=== PATIENT | male | born 1945 | race Caucasian/White ===

== ENCOUNTER 2017-05-11 22:10 | Inpatient (IN) | payer MEDICARE ==
[~2017-05-11] VITALS: Ht 183.1 cm; Wt 145.2 kg
--- NOTE | ~2017-05-11 | EC ---
PATIENT:KACEY CHAWLA DATE OF SERVICE: 05/11/17 SEX: M MEDICAL RECORD: [id number] DATE OF : 43 LOCATION:D. D.212 AGE OF PATIENT: 72 ADMISSION DATE: 05/11/17 REFERRING PHYSICIAN: INTERPRETING PHYSICIAN: MARINE JADE MD ECHOCARDIOGRAM REPORT ECHO CHARGES 4 ECHO COMPLETE CLINICAL DIAGNOSIS: CHF ECHOCARDIOGRAPHIC MEASUREMENTS (adult normal given) AC root (d.<3.7cm) 3.0 cm LV Septum d (<1.2 cm> 1.8 cm Valve Excursion 1.3 cm LV Septum (systole) 2.0 cm Left Atria (s.<4.0cm> 4.0 cm LVPW d(<1.2cm) 1.4 cm RV (d.<2.3cm) 4.9 cm LVPW (sytole) 2.1 cm LV diastole(<5.6CM) 5.7 cm MV E-F(>70mm/sec) cm LV systole 4.8 cm LVOT Diameter 1.7 cm MV exc.(>10mm) 1.9 cm Est.ejection fraction (50-75%) % Pericardial Effusion N DOPPLER: LVIT cm/sec A 89.0 cm/sec E 39.0 cm/sec LA cm/sec RVSP 44 mmHg LVOT 120 cm/sec AOP1/2T m/s Asc. Ao 172 cm/sec RVOT 89 cm/sec RA cm/sec PA 142 cm/sec AV Gradient Peak 11.89mmHg AV Mean 6.63 mmHg AV Area 1.2 cm MV Gradient Peak 4.67 mmHg MV Mean 2.18 mmHg MV Area cm COMMENTS: Forest Resource Specialist: 2 ELYSIA SUAREZ Well Surveying Engineer: 4 Dr. Jade TAPE# PACS DATE OF SERVICE: 05/15/2017 PROCEDURE: Transthoracic Echocardiogram FINDINGS: 1. The left ventricle is difficult to visualize. Accurate assessment of ejection fraction is difficult to ascertain, posterior wall is not very well visualized, lateral wall is not very well visualized. The septum and partial anterior wall is reasonably visualized and shown to be thickening appropriately. The patient is also on atrial fibrillation making marked variations in the R-R ECHOCARDIOGRAM REPORT [id number] KACEY CHAWLA interval. Grossly, the ejection fraction appears to be mildly reduced with an ejection fraction of 45% to 50%. 2. The right ventricle appears to be moderately to severely dilated with normal function. 3. The right atrium is moderately dilated. 4. The aortic valve appears to have thickening along the right noncoronary cusp and evidence of mild aortic stenosis with peak gradient that was demonstrated only 15 mmHg. The patient has moderate tricuspid valve regurgitation. There is no demonstrated pericardial effusion. In conclusion, the patient has atrial fibrillation, some evidence of cardiomyopathy that is difficult to ascertain and I would recommend that the patient, if clinically relevant, undergo a complimentary functional assessment in the form of a MUGA if we can get his rate under good control. Otherwise, there is evidence of hypertensive heart disease, mild aortic stenosis. No other gross valvular abnormalities were demonstrated on this study. TRANSINT:[id number] Voice Confirmation ID: [id number] DOCUMENT ID: [id number] MARINE JADE MD CC: [id number] DICTATION DATE: 05/15/17810 WATER POLLUTION SPECIALIST: 05/15/17830 DIS IN 05/19/17 [facility] [address] [place] [address]
[~2017-05-11 22:10] MED LIST: AMBIEN10 MG; ASPIRIN 81 MG E81 MG PO; AVODART0.5 MG PO; BYSTOLIC20 MG PO; CENTRUM COMPLE1 EACH PO; DURAGESIC1 PATCH .1; FISH OIL 1,2001 CA1 PO; GLUCOPHAGE500 MG PO; GLUCOVANCE 2.5/1 TAB PO; KLOR-CON M2020 MEQ PO; LASIX40 MG PO; NORCO 10/325 TA1 TA1 PO; PERCOCET 10/3251 TA1 PO; PLAVIX75 MG PO; PRILOSEC20 MG PO; PRINZIDE 10/12.1 TAB PO; REQUIP1 MG PO; RESTORIL15 MG PO; TENORMIN100 MG PO; VITAMIN E400 UNI2 PO; VYTORIN 10-40 M1 TAB PO; ZYLOPRIM100 MG PO
[2017-05-11 22:43] LABS: BASOPHILS 0 % (0-2); EOSINOPHILS 0.1 % (0-7); HEMATOCRIT 39.7 % (42.0-54.0); HEMOGLOBIN 11.6 g/dL (13.5-17.5); IMMATURE GRANULOCYTES 0.3 % (0-5); LYMPHOCYTES 9.1 % (15-50); MCH 29.7 pg (26.0-34.0); MCHC 29.2 g/dL (31.0-37.0); MCV 101.5 fL (80.0-100.0); MEAN PLATELET VOLUME 11.6 fL (7.4-10.4); MONOCYTES 4.7 % (2-11); NEUTROPHILS 85.8 % (40-80); PLATELET COUNT 174 10x3/uL (130-400); RBC 3.91 10x6/uL (4.20-6.10); RDW 14.2 % (11.5-14.5); WBC 9.5 10x3/uL (4.8-10.8)
[2017-05-11 23:02] LABS: ALBUMIN 3.3 g/dL (3.4-5.0); ANION GAP 13.2 mmol/L (8-16); BILIRUBIN - TOTAL 0.6 mg/dL (0.2-1.3); CALCIUM 8.3 mg/dL (8.5-10.1); CREATININE - SERUM 1.9 mg/dL (0.6-1.3); POTASSIUM - SERUM 5.2 mmol/L (3.5-5.1); PROTEIN - SERUM 6.9 g/dL (6.4-8.2)
[2017-05-11 23:06] LABS: TROPONIN-I 0.034 ng/mL (0.000-0.060)
[2017-05-12] VITALS: BP 104/59
[2017-05-12 00:20] LABS: APPEARANCE HAZY (CLEAR); BILIRUBIN NEGATIVE (NEGATIVE); COLOR DK YELLOW (YELLOW); GLUCOSE NEGATIVE (NEGATIVE); KETONE NEGATIVE (NEGATIVE); LEUKOCYTE ESTERASE TRACE (NEGATIVE); NITRITE NEGATIVE (NEGATIVE); PROTEIN TRACE mg/dL (NEGATIVE); UROBILINOGEN NORMAL (NORMAL)
[2017-05-12 00:23] LABS: BACTERIA FEW /hpf (NONE SEEN); EPITHELIAL CELLS 0-5 /hpf (0-5); WHITE CELLS - URINE 0-5 /hpf (0-5)
[2017-05-12 00:24] LABS: AMORPHOUS SEDIMENT >1+ /lpf (NONE SEEN)
--- NOTE | 2017-05-12 01:50 | NUR ---
RECEIVED FROM ER, 02-2L. IV-RFA-NS @50, ARMSTRONG, PT IS ON BED REST, LASIX WAS GIVEN IN ER, BED IS LOW, SRX2, CALL LIGHT IN REACH, VITALS ARE STABLE, TELEMTRY IS ON, WILL CONTINUE PLAN OF CARE
[2017-05-12] MEDS ORDERED: COZAAR100 MG PO (02:05)
[2017-05-12] MEDS ORDERED: ZETIA10 MG PO (02:07)
[2017-05-12] MEDS ORDERED: HYDROCHLOROTH12.5 M1 PO (02:07)
[2017-05-12] MEDS ORDERED: HYDROCHLOROTHIA25 MG PO (02:08)
[2017-05-12] MEDS ORDERED: ULTRAM50 MG PO (02:09)
--- NOTE | 2017-05-12 02:55 | NUR ---
CALL LIGHT IN REACH, WILL CONTINUE WITH PLAN OF CARE.
[2017-05-12 04:03] VITALS: BP 121/58
--- NOTE | 2017-05-12 04:44 | NUR ---
PT SLEEPING, FAMILY BROUGHT COPY OF LIVING WILL, PLACED ON CHART, FAMILY AT BEDSIDE
[2017-05-12 05:44] VITALS: Ht 183.1 cm; Wt 145.2 kg
--- NOTE | 2017-05-12 07:28 | NUR ---
AM ROUNDS- PT CONFUSED, PULLING AT HEART MONITOR. PT A LITTLE SOB ON 2 L NC. BED LOW AND WHEELS LOCKED, BEDSIDE RAILS X2, BED ALARM ON. NO FAMILY PRESENT. AEROBICS TEACHER AT BEDSIDE TO GET VITAL SIGNS. CALL LIGHT IN REACH, NAD NOTED, WILL CONTINUE TO MONITOR.
[2017-05-12 08:00] VITALS: BP 117/64
--- NOTE | 2017-05-12 09:00 | NUR ---
CALLED TO PT'S ROOM. BECAUSE HAVING PAIN WANTS TO KNOW IF HE CAN HAVE SOMETHING, INFORMED PT AND PT'S THAT HE DOES NOT HAVE ANYTHING ORDER, WILL CALL DR. LOPEZ TO GET SOMETHING. IV GOING OFF, CHECKED IT. PT HAS PULLED IV OUT WITH TIP INTACT. WILL RESTART NEW IV. PT IN BED, TRYING TO PULL HEART MONITOR OFF. NAD NOTED, AT BEDSIDE WILL CONTINUE TO MONITOR.
--- NOTE | 2017-05-12 09:06 | NUR ---
CALLED DR. LOPEZ AND ASKED HIS NURSE MILLIE IF PT CAN HAVE SOMETHING FOR PAIN. WAITING [employer] G[employer] SPOTTER BACK WITH ORDERS.
[2017-05-12 12:00] VITALS: BP 105/63
--- NOTE | 2017-05-12 12:23 | NUR ---
PT'S DAUGHTER IN LAW INFORMED PACKING CLERK THAT PT WANTS TO LEAVE NOW. THAT HE WANTS HIS ARMSTRONG OUT SO THEY CAN LEAVE. DAUGHTER IN LAW CAME UP TO NURSE'S STATION AND INFOMED THIS NURSE THAT PT IS GOING TO LEAVE AND THE ARMSTRONG NEEDS TO BE TAKEN OUT OR PT IS GOING TO PULL IT OUT. INFORMED THE DAUGHTER IN LAW THAT I HAVE TO CALL DR. LOPEZ KNOW THAT PT WANTS TO LEAVE AMA. 1230- CALLED DR. LOPEZ'S OFFICE BUT NO ONE ANSWERED THE PHONE. NOTIFY FAMILY AT BEDSIDE. DAUGHTER IN LAW STATED " MY IS TALKING TO HIM TRYING TO GET HIM TO STAY. MAYBE HE WILL LISTEN TO HIM". PT'S DAUGHTER IN LAW STATED THAT SHE WOULD NOTIFY ME IF PT STILL WANTS TO LEAVE AMA.
--- NOTE | 2017-05-12 14:03 | NUR ---
FAMILY WANT ALL MEDS RESTARTED ESPECIALLY HIS REQUIP. CALLED DR. LOPEZ'S OFFICE AND SPOKE WITH MILLIE LOPEZ'S NURSE, INFOMRED HER THAT PT WANTED TO LEAVE JANA GOLD BUT DECIDED TO STAY, BUT NOW HE WANTS ALL OF HIS MEDICATIONS RESTARTED.
[2017-05-12 17:05] VITALS: BP 99/48
--- NOTE | 2017-05-12 17:14 | NUR ---
PT REPOSITIONED IN BED, WITH THE HELP OF THE ANALYTICAL ENGINEER. NATHANIEL EMPITED AT THIS TIME, TOTAL OUTPUT WAS 1200. HEART MONITOR PLACED BACK ON PT. PT DENIES ANY NEEDS AT THIS TIME. RESP EVEN AND UNLABORED, NAD NOTED, BED LOW, CALL LIGHT IN REACH, WILL CONTINUE TO MONITOR.
--- NOTE | 2017-05-12 18:24 | NUR ---
EXPLAINED SCD RATIONAL TO PT. PT RUFUSED TO WEAR SCD'S AT THIS TIME. PT IN BED, ASKING ABOUT HIS . INFOMRED PT THAT SHE WENT HOME FOR A LITTLE WHILE. PT PULLING AT HEART MONITOR AND ARMSTRONG. ASKED PT TO STOP PULLING AT ARMSTRONG BECAUSE IF HE PULLS IT OUT IT IS GOING TO HURT HIM A LOT. PT STATED "OK". DENIES ANY OTHER NEEDS AT THIS TIME, NAD NOTED,CALL LIGHT IN REACH, BED ALARM ON, WILL CONTINUE TO MONITOR.
[2017-05-12 19:00] VITALS: BP 144/71
--- NOTE | 2017-05-12 19:39 | NUR ---
PT RESTING IN BED. FAMILY AT BED SIDE. PT ASKED FOR REQUIP PILL FOR HIS RESTLESS LEGS AND A NORCO FOR HIS BACK. PT ALSO ASKS FOR JELLO AND SHERBERT ICE CREAM. PT HAS FOLLEY HOOKED UP AND LEFT WRIST IV S/L. FAMILY ASKES ABOUT CT DONE TODAY. PT HAS NO OTHER NEEDS NO S/S OF DISTRESS. PT ON 3L O2 VIA NC. BED LOW AND CALL LIGHT WITHIN REACH. WILL CPOC
--- NOTE | 2017-05-12 21:08 | NUR ---
PT C/O NEEDING MORE O2. RESPRITORY CAME TO CHECK PT 02 SAT VERY LOW PT NOW ON 5L. CRYSTAL FROM ICU SAID TO GIVE LASIX EARLY. GIVEN TO PT. PT O2 SAT NOW 88 ON THE 5L REPORTING TO CHARGE NURSE AND RESPRITORY NOW. PT NOT IN DISTRESS. COUGHING THE SPUTUM UP AND IS AAO
--- NOTE | 2017-05-12 21:11 | NUR ---
PT O2 SAT IS NOW 92% ON 5L. FAMILY IN ROOM PT STILL TRYING TO COUGH. WILL CPOC. STILL REPORTING TO CHARGE NURSE AND RESPRITORY
--- NOTE | 2017-05-12 22:01 | NUR ---
PT NOW ON 15L OXYMIZER. RESPRITORY IN ROOM. GUERDA FROM ICU IN ROOM. RESPRITORY DRAWING AN ABG AND GUERDA STATES SHE WILL CALL DOCTOR TO TALK ABOUT LASIX AND SEE WHAT ORDERES WANTS TO PUT IN. PT O2 IS 90%. LABORED BREATHING 32. WILL CPOC
--- NOTE | 2017-05-12 22:20 | NUR ---
UPDATE CALLED TO DR. MICHELE, NEW ORDERS RECIEVED,
--- NOTE | 2017-05-12 22:47 | NUR ---
EMPTIED 1025 FROM [facility] BEFORE GIVING LASIX. PT WANTED TO STRAIGHTEN UP IN BED. O2 DROPPED TO 85 NOW IS 89. PT AWAKE. AAO. ASKED ME TO CALL AND UPDATE ON SITUATION. WAS NOTIFIED. PT DENIES ANY OTHER NEEDS. WILL CPOC
--- NOTE | 2017-05-12 23:00 | NUR ---
PATIENT REFUSED BIPAP EVEN AFTER CO2 WAS 103 ON ABG. HE SAID HE COULD NOT TOLERATE BIPAP
[2017-05-13] VITALS: BP 119/69
--- NOTE | 2017-05-13 00:28 | NUR ---
PT RESTLESS. PULLING O2 OFF AND MESSING WITH PHONE WANTING TO CALL HIS . HELPED PT DIAL HER NUMBER THIS IS THE 3RD TIME HE HAS CALLED HER. PT O2 IS NOW ON AND O2 IS 90% AT 3L OXYMIZER. PT O2 WAS 64 WHEN WALKED IN ROOM BECAUSE PT TOOK OF OXYGEN. PT REPOSITONED. PILLOW APPLIED TO HELP PT STAY STRAIGHT IN BED. PT KEEPS LEANING TO RIGHT. PT DENIES ANY NEEDS. NO S/S OF DISTRESS. WILL CPOC
--- NOTE | 2017-05-13 02:35 | NUR ---
PT IS ASLEEP. RESPIRATIONS LABORED. AND PT IS GURGLING WHEN BREATHING. PT IS PUSHING HIMSELF OVER TO THE RIGHT AND LAYING IN AN AWKWARD POSITON. I HAVE REPOSITONED SEVERAL TIMES TONIGHT R/T PT LEANING TO THE RIGHT. PT O2 IS 90% ON 3L OXYMIZER. NO S/S OF DISTRESS. WILL CPOC
[2017-05-13 03:36] LABS: BASOPHILS 0.2 % (0-2); EOSINOPHILS 0.6 % (0-7); HEMOGLOBIN 11.3 g/dL (13.5-17.5); IMMATURE GRANULOCYTES 0.3 % (0-5); LYMPHOCYTES 7.8 % (15-50); MCH 29.4 pg (26.0-34.0); MCHC 29.7 g/dL (31.0-37.0); MEAN PLATELET VOLUME 11.5 fL (7.4-10.4); MONOCYTES 10.9 % (2-11); NEUTROPHILS 80.2 % (40-80); PLATELET COUNT 157 10x3/uL (130-400); RBC 3.85 10x6/uL (4.20-6.10); WBC 9.9 10x3/uL (4.8-10.8)
[2017-05-13 03:37] LABS: MCV 98.7 fL (80.0-100.0)
[2017-05-13 03:53] LABS: ANION GAP 7.4 mmol/L (8-16); BILIRUBIN - TOTAL 0.64 mg/dL (0.2-1.3); CALCIUM 7.9 mg/dL (8.5-10.1); CARBON DIOXIDE 39.1 mmol/L (21.0-32.0); CREATININE - SERUM 1.8 mg/dL (0.6-1.3); POTASSIUM - SERUM 4.5 mmol/L (3.5-5.1); PROTEIN - SERUM 6.6 g/dL (6.4-8.2)
[2017-05-13 04:21] LABS: APPEARANCE TURBID (CLEAR); COLOR PINK (YELLOW)
[2017-05-13 04:22] LABS: BACTERIA NONE SEEN /hpf (NONE SEEN); BILIRUBIN NEGATIVE (NEGATIVE); EPITHELIAL CELLS NSEEN /hpf (0-5); GLUCOSE NEGATIVE (NEGATIVE); KETONE NEGATIVE (NEGATIVE); LEUKOCYTE ESTERASE NEGATIVE (NEGATIVE); NITRITE NEGATIVE (NEGATIVE); PROTEIN 1+ mg/dL (NEGATIVE); RED CELLS - URINE >50 /hpf (0-5); UROBILINOGEN NORMAL (NORMAL); WHITE CELLS - URINE 0-5 /hpf (0-5)
[2017-05-13 04:37] VITALS: BP 132/78
--- NOTE | 2017-05-13 06:14 | NUR ---
PT SITTING ON SIDE OF BED FOR 20 MINS NOW. X1 ASSIST TO SIT ON SIDE OF BED. ALARM ON AND CALL LIGHT WITHIN REACH. PT VERBALIZED UNDERSTANDING WHEN TOLD TO CALL FOR HELP BACK IN BED AND VERBALIZED THAT HE WILL NOT TRY AND GET UP WITH OUT ASSISTANCE. PT ON 3L OXYMIZER 92%. SITTING UP DRINKING A COKE. PT DENIES ANY NEEDS.NO S/S OF DISTRESS. WILL CPOC
--- NOTE | 2017-05-13 06:32 | NUR ---
PT REPOSITIONED AND BACK IN BED. HOB UP 30 PT O2 ON 3L OXYMIZER. PT DENIES ANY NEEDS. NO S/S OF DISTRESS. WILL CPOC
[2017-05-13 08:42] VITALS: BP 113/47
--- NOTE | 2017-05-13 10:16 | NUR ---
WENT IN PT'S ROOM AND HE HAD ALL OF HIS CLOTHES PULLED OFF, HEART MONITOR OFF, AND HAD TRIED TO PULL OUT HIS ARMSTRONG CATH - HE WAS ORIENTED TO PERSON, PLACE, AND TIME AND STATED "I JUST WANTED TO GO HOME" - ARMSTRONG WAS SECURED BACK IN STAT LOCK AND I EXPLAINED TO HIM NOT TO PULL ON HIS LINES - VERBALIZED UNDERSTANDING AND STATED "I WON'T DO IT AGAIN"
[2017-05-13 12:40] VITALS: BP 130/61
--- NOTE | 2017-05-13 19:26 | NUR ---
PT RESTING IN BED. HOB 45. PT ON 3L O2 OXYMIZER. IV RIGHT HAND S/L. PT HAS PHONE AND CALLLIGHT WITHIN REACH. DENIES ANY NEEDS NO S/S OF DISTRESS. WILL CPOC
[2017-05-13 20:00] VITALS: BP 139/78
--- NOTE | 2017-05-13 23:07 | NUR ---
PT RESTING IN BED. DENIES ANY NEEDS. NO S/S OF DISTRESS. WILL CPOC
[2017-05-14 03:55] VITALS: BP 131/82
[2017-05-14 04:00] VITALS: BP 138/72
[2017-05-14 04:27] LABS: BASOPHILS 0.3 % (0-2); HEMATOCRIT 36.9 % (42.0-54.0); HEMOGLOBIN 11.2 g/dL (13.5-17.5); IMMATURE GRANULOCYTES 0.2 % (0-5); LYMPHOCYTES 12.5 % (15-50); MCH 29.5 pg (26.0-34.0); MCHC 30.4 g/dL (31.0-37.0); MCV 97.1 fL (80.0-100.0); MEAN PLATELET VOLUME 11.8 fL (7.4-10.4); MONOCYTES 12.2 % (2-11); NEUTROPHILS 73.8 % (40-80); PLATELET COUNT 168 10x3/uL (130-400); RDW 14.1 % (11.5-14.5); WBC 8.6 10x3/uL (4.8-10.8)
[2017-05-14 04:45] LABS: ALBUMIN 2.9 g/dL (3.4-5.0); BILIRUBIN - TOTAL 1.06 mg/dL (0.2-1.3); CREATININE - SERUM 1.7 mg/dL (0.6-1.3); POTASSIUM - SERUM 4.1 mmol/L (3.5-5.1); PROTEIN - SERUM 6.7 g/dL (6.4-8.2)
[2017-05-14 04:46] LABS: CARBON DIOXIDE 41.1 mmol/L (21.0-32.0)
--- NOTE | 2017-05-14 07:30 | NUR ---
PT SITTING UP IN BED SLEEPING ARROUSES EASILY RR EVEN AND UNLABORED NO S/S DISTRESS NOTED. TALKING ON THE PHONE WITH FAMILY MEMBER. ASSESSMENT COMPLETED AT THIS TIME. WILL CONT TO MONITOR.
[2017-05-14 07:53] VITALS: BP 133/81
[2017-05-14 09:35] LABS: CREATININE - URINE 14.9 mg/dL (30-125)
[2017-05-14 09:37] LABS: PRO/CRE RATIO URINE 0.3 mg/g
[2017-05-14 12:33] VITALS: BP 145/64
--- NOTE | 2017-05-14 13:16 | NUR ---
RD f/u note: Chart reviewed Pt sleeping while RD in room talked to family who report fair appetite says he has chewing problems secondary to no teeth, willing to try mechanical soft/ground meats. Family reported pt likes chocolate ensure. Diet: renal ADA PO: average 58%X 3 meals. MEDS: Lasix Labs: BUN 44 Trending up, Creat 1.8, NA 140, K 4.1 (trending down) BM note to be q 3 days Skin: reddened area to abd. noted to be edematous therefore MD started lasix. WT: up slightly to 341.9 frp, 339 Plan: RD to order ensure BID Add Chopped meats to diet RD to continue to follow/monitor
[2017-05-14 16:49] VITALS: BP 160/93
--- NOTE | 2017-05-14 18:34 | NUR ---
PT LAYING TO LEFT SIDE SLEEPING NO S/S DISTRESS NOTED RR EVEN AND UNLABORED.
--- NOTE | 2017-05-14 19:50 | NUR ---
NURSE AT BED SIDE TO OBTAIN VITALS, VITAL SIGNS STABLE.
[2017-05-14 20:12] VITALS: BP 133/81
--- NOTE | 2017-05-14 21:45 | NUR ---
HS MEDS GIVEN, IV TO LEFT FOREARM SWOLEN AND RED. IV CATH REMOVED WITH TIP INTACT, COVERED WITH 2X2 AND TAPE. REPOSITIONED IN BED FOR COMFORT. BED LOW, CL IN REACH, SR UP X2, BED ALARM IN USE.
--- NOTE | 2017-05-14 22:49 | NUR ---
IV RESITED TO THE TOP OF THE RIGHT FOREARM, 20 GAUGE, FIRST ATTEMPT. PT TOLERATED WELL.
--- NOTE | 2017-05-14 23:39 | NUR ---
PT INCONTINENT OF BOWEL, BATH AND LINEN CHANGE COMPLETE. HAIR WASHED WITH SHAMPOO CAP, ORAL CARE PROVIDED. REPOSITIONED IN BED FOR COMFORT. CL IN REACH.
--- NOTE | 2017-05-15 01:23 | NUR ---
RESTING WITH EYES CLOSED, RESPERATIONS EVEN, NO S/S DISTRESS NOTED.
[2017-05-15 04:00] VITALS: BP 134/73
--- NOTE | 2017-05-15 07:25 | NUR ---
PT SITTING UP IN BED LETHARGIC BUT ARROUSES EASILY AND CAN VOICE A CONVERSATION WITH ME. NEW IV NOTED TO R FA 20 G SL. PT DENIES ANY NEEDS WILL CONT TO MONITOR
[2017-05-15 08:10] LABS: BASOPHILS 0.2 % (0-2); EOSINOPHILS 1.5 % (0-7); HEMATOCRIT 39.8 % (42.0-54.0); HEMOGLOBIN 11.7 g/dL (13.5-17.5); IMMATURE GRANULOCYTES 0.1 % (0-5); LYMPHOCYTES 15.4 % (15-50); MCH 29.3 pg (26.0-34.0); MCHC 29.4 g/dL (31.0-37.0); MEAN PLATELET VOLUME 11.2 fL (7.4-10.4); MONOCYTES 6.5 % (2-11); NEUTROPHILS 76.3 % (40-80); PLATELET COUNT 157 10x3/uL (130-400); RDW 13.8 % (11.5-14.5); WBC 8.1 10x3/uL (4.8-10.8)
[2017-05-15 08:11] LABS: MCV 99.5 fL (80.0-100.0)
[2017-05-15 08:45] LABS: ALBUMIN 2.9 g/dL (3.4-5.0); BILIRUBIN - TOTAL 1.03 mg/dL (0.2-1.3); CALCIUM 8.4 mg/dL (8.5-10.1); CREATININE - SERUM 1.3 mg/dL (0.6-1.3); POTASSIUM - SERUM 3.5 mmol/L (3.5-5.1); PROTEIN - SERUM 6.2 g/dL (6.4-8.2)
[2017-05-15 08:46] LABS: ANION GAP 9.5 mmol/L (8-16)
--- NOTE | 2017-05-15 08:50 | NUR ---
DR. RUVALCABA ROUNDING. AM MEDS GIVEN ORDERED. NEW ORDERS RECEIVED WITH LOPRESSOR ALREADY GIVEN. SPOKE WITH DR. RUVALCABA AND HE ADVISED OK TO GIVE TOPROL ORDERED AND DC LOPRESSOR AFTER THIS AM. MESERET MYERS RN ADVICED.
[2017-05-15 08:57] VITALS: BP 121/82
[2017-05-15 11:17] LABS: SPE - A/G RATIO 1.2 (0.7-1.7); SPE - ALBUMIN 3.4 g/dL (2.9-4.4); SPE - ALPHA-1 GLOBULIN 0.2 g/dL (0.0-0.4); SPE - ALPHA-2 GLOBULIN 0.7 g/dL (0.4-1.0); SPE - BETA GLOBULIN 1.1 g/dL (0.7-1.3); SPE - GAMMA GLOBULIN 0.9 g/dL (0.4-1.8); SPE - M-SPIKE Not Observed g/dL (Not Observed); SPE - TOTAL PROTEIN 6.3 g/dL (6.0-8.5)
[2017-05-15 12:12] VITALS: BP 100/50
[2017-05-15 19:00] VITALS: BP 127/88
[2017-05-16] VITALS (9 sets, daily range): BP systolic 93–138; BP diastolic 46–82
--- NOTE | 2017-05-16 02:58 | NUR ---
RESTING WITH EYES CLOSED, RESPERATIONS EVEN, NO S/S DISTRESS NOTED.
--- NOTE | 2017-05-16 03:38 | NUR ---
NORCO 1 TAB GIVEN AT PT REQUEST FOR C/O PAIN, RATES PAIN AT AN 8 ON PAIN SCALE. REPOSITIONED IN BED FOR COMFORT, TURNED TO LEFT SIDE AND PLACED PILLOW BEHIND RIGHT SIDE OF BACK. KETOCONAZOLE CREAM APPLIED TO ABD FOLDS ON THE REDDEND AREAS. BED LOW, CL IN REACH, SR UP X2, BED ALARM IN USE.
[2017-05-16 04:50] LABS: BASOPHILS 0.3 % (0-2); EOSINOPHILS 2.8 % (0-7); HEMATOCRIT 39.7 % (42.0-54.0); HEMOGLOBIN 11.4 g/dL (13.5-17.5); IMMATURE GRANULOCYTES 0.1 % (0-5); MCH 28.9 pg (26.0-34.0); MCHC 28.7 g/dL (31.0-37.0); MCV 100.8 fL (80.0-100.0); MEAN PLATELET VOLUME 11.3 fL (7.4-10.4); MONOCYTES 12.9 % (2-11); NEUTROPHILS 73.9 % (40-80); PLATELET COUNT 183 10x3/uL (130-400); RBC 3.94 10x6/uL (4.20-6.10); RDW 13.7 % (11.5-14.5); WBC 7.5 10x3/uL (4.8-10.8)
[2017-05-16 05:22] LABS: ALBUMIN 2.7 g/dL (3.4-5.0); BILIRUBIN - TOTAL 0.8 mg/dL (0.2-1.3); CALCIUM 8.2 mg/dL (8.5-10.1); CREATININE - SERUM 1.3 mg/dL (0.6-1.3); PROTEIN - SERUM 6.6 g/dL (6.4-8.2)
[2017-05-16 05:24] LABS: ANION GAP 2.2 mmol/L (8-16); CARBON DIOXIDE 46.6 mmol/L (21.0-32.0); POTASSIUM - SERUM 2.8 mmol/L (3.5-5.1)
--- NOTE | 2017-05-16 06:28 | NUR ---
PAGE OUT TO DR LOPEZ TO REPORT CRITICAL POTASSIUM OF 2.9.
--- NOTE | 2017-05-16 08:00 | NUR ---
AM ROUNDS COMPLETED. INTRODUCED MYSELF TO PT PRIMARY RN FOR TODAYS SHIFT. PT IS VERY TIRED AND LETHARGIC PTS CO2 IS CRITICAL HIGH BUT PT APPARENTLY HAS REFUSED HIS BIPAP/CPAP MACHINE. PT IS ORIENTED TO PERSON, TIME AND COULD EVEN TELL ME THE PRESIDENT BUT PT NOT AWARE OF SITUATION. ARMSTRONG IN PLACE DRAINING TO GRAVITY OFF LEFT SIDE OF THE BED CONCENTRATED URINE. TELEMETRY IN PLACE RUNNING 123 UNCONTROLLED A.FIB. PT HAS A R.FA PIV PATENT WITH DRSG CDI AND SWAB CAPS IN USE. PT HAS OXYMIZER @5L IN PLACE AND RR NONLABORED BUT VERY SHALLOW. PT DENIES ANY FURTHER NEEDS AT THIS TIME WILL CPOC.
--- NOTE | 2017-05-16 10:33 | NUR ---
POTASSIUM GIVEN ORDERED AND WILL THEN FOLLOW EP PER RENAL VACUUM CASTER. PT SITTING UP IN BED STILL VERY DROWSY BUT WILL WAKE UP AND FOLLOW COMMANDS. PT DENIES ANY CURRENT PAIN OR NEEDS. PT DENIED WANTING BREAKFAST AND JUST WANTS TO REST. RR NONLABORED WITH OXYMIZER AT 5L IN PLACE. WILL CPOC.
--- NOTE | 2017-05-16 11:00 | NUR ---
ROUNDING ON PT AND AWARE OF LOW POTASSIUM. SUPPLEMENTAL POTASSIUM PROVIDED AND EP FOLLOWED. WILL CHECK LABS IN MORNING. NO FURTHER NEEDS.
--- NOTE | 2017-05-16 13:55 | NUR ---
COMPLETED BED BATH COMPLETED. PT VOICED THANKS AND WAS MORE ALERT FOR THIS. PTS ABDOMINAL FOLDS WERE VERY REDDENED AND MOIST. CLEANSED VERY WELL AND DRIED UNDER FOLDS AND PLACED PILLOW CASE TO KEEP MOISTURE BARRIER. PT STATED IT FELT BETTER AND VOICED THANKS. TALKED WITH PT ABOUT CPAP OR BIPAP AND ENCOURAGED THE IMPORTANCE OF GETTING HIS CO2 DOWN BUT PT STATED "I CANT WEAR IT, HUMBERTO TRIED AND I JUST DONT LIKE IT AND CANT DO IT" I EXPLAINED TO PT HIS CO2 WOULD HAVE TO COME DOWN FOR HIM TO GET BETTER AND HE VERBALIZED UNDERSTANDING. WILL CONTINUE WITH OTHER MEASURES AND CURRENT PLAN OF CARE. PT RESTING IN BED AND DENIES ANY FURTHER NEEDS AT THIS TIME. WILL CPOC.
--- NOTE | 2017-05-16 19:18 | NUR ---
BEDSIDE SHIFT REPORTING COMPLETED. PT RESTING IN BED QUIETLY WITH EYES CLOSED. RR NONLABORED. CL IN REACH, BED IN LOWEST, LUKAS ENCLOSURE BED IN PLACE BUT R.SIDE LEFT UNZIPPED PT HAS BEEN CALM AND COOPERATIVE TODAY. NO FURTHER NEEDS.
--- NOTE | 2017-05-16 22:23 | NUR ---
INITIAL ROUDNS COMPLETED AT 1925 HRS. PT STATED HIS BACK WAS HURTNG. ASSESSMENT COMPLETED AT 1950 HRS. UCAF PER FCM HR 125. IV TO RFA SL. O2 3L OXIMIZER. LUNGS DIMINISHED IN BASES BILAT. REDNESS NOTED TO ABD FOLDS. 3-4+ EDEMA NOTED TO LOWER EXTREMITIES. CHEWING TOBACCO AT BEDSIDE. NORCO PO GIVNE FOR C/O BACK PAIN. PT REQUESTING MEDS FOR HIS RESTLESS LEGS. PT AND SPOUSE INFORMED TAHT PT ALREADY HAD REQUIP TODAY AND UNABLE TO GIVEN NTIL TOMORROW. PT STATED UNDERSTANDING. PT CURRENTLY RESTING WITH EYES CLOSED. RESP EVEN AND REGULAR. SR UP XW, CALL LIGHT WITHIN REACH AND BED ALARM ON. ARMSTRONG DRAINING YELLOW URINE.
--- NOTE | 2017-05-16 23:55 | NUR ---
PT RESTING WITH EYES CLOSED. RESP EVEN AND REGULAR. SR UP X2, CALL LIGHT WITHIN REACH AND BED ALARM ON.
[2017-05-17 01:02] VITALS: BP 127/61
--- NOTE | 2017-05-17 02:57 | NUR ---
PT RESTING WITH EYES CLOSED. RESP DEEP AND IRREGULAR. WILL CONTINUE TO MONITOR. SR UP X2, CALL LIGHT WITHIN REACH AND BED ALARM ON.
--- NOTE | 2017-05-17 04:22 | NUR ---
PT RESTING WITH EYES CLOSED. RESP EVEN AND REGULAR. SR UP X2, CALL LIGHT WITHIN REACH AND BED ALARM ON.
[2017-05-17 04:48] LABS: BASOPHILS 0.1 % (0-2); EOSINOPHILS 1.9 % (0-7); HEMATOCRIT 39.6 % (42.0-54.0); HEMOGLOBIN 11.4 g/dL (13.5-17.5); IMMATURE GRANULOCYTES 0.2 % (0-5); LYMPHOCYTES 5.5 % (15-50); MCH 29.4 pg (26.0-34.0); MCHC 28.8 g/dL (31.0-37.0); MCV 102.1 fL (80.0-100.0); MEAN PLATELET VOLUME 11.4 fL (7.4-10.4); MONOCYTES 17.5 % (2-11); NEUTROPHILS 74.8 % (40-80); PLATELET COUNT 182 10x3/uL (130-400); RBC 3.88 10x6/uL (4.20-6.10); RDW 13.8 % (11.5-14.5); WBC 8.8 10x3/uL (4.8-10.8)
[2017-05-17 05:11] LABS: CALCIUM 8.3 mg/dL (8.5-10.1); CREATININE - SERUM 1.2 mg/dL (0.6-1.3); MAGNESIUM - SERUM 1.3 mg/dL (1.8-2.4); T4 THYROXIN - FREE 1.16 ng/dL (0.76-1.46); THYROID STIMULATING HORMONE 0.54 uIU/mL (0.36-3.74)
[2017-05-17 05:12] VITALS: BP 141/69
[2017-05-17 05:12] LABS: ANION GAP 5.3 mmol/L (8-16); POTASSIUM - SERUM 3.4 mmol/L (3.5-5.1)
[2017-05-17 05:17] LABS: CARBON DIOXIDE 45.1 mmol/L (21.0-32.0)
--- NOTE | 2017-05-17 05:32 | NUR ---
AM CO2 45.1. MD AWARE. CO2 46.6 05/16/17. TRENDING DOWNWARD.
--- NOTE | 2017-05-17 05:39 | NUR ---
VSS THROUGHOUT NIGHT. UCAF PER CM. PT SLEPT WELL DURING SHIFT. NEEDS MET; WILL CONTINUE TO MONITOR.
--- NOTE | 2017-05-17 06:36 | NUR ---
KCL 3.4. KCL 40 MEQ IN 60CC OF APPLE JUICE GIVEN. WILL CONTINUE TO MONITOR.
[2017-05-17 08:00] VITALS: BP 117/65
--- NOTE | 2017-05-17 08:00 | NUR ---
AM ROUNDS COMPLETED. INTRODUCED MYSELF TO PT PRIMARY RN FOR TODAYS SHIFT. PT ALERT AND ORIENTED BUT SLIGHTLY CONFUSED ABOUT SITUATION. PT IS NAKED AND WONT KEEP HIS CLOTHES ON BUT DID ALLOW ME TO COVER HIM WITH A SHEET. SHIFT ASSESSMENT COMPLETED. PT HAS A R.FA PIV WITH DRSG CDI AND SWAB CAPS IN USE. PT HAS A ARMSTRONG CATHETER DRAINING TO GRAVITY OFF L.SIDE OF THE BED NAOMIE COLORED URINE. TELEMETRY IN PLACE RUNNING A.FIB CONTROLLED AT 80. RR NONLABORED BUT VERY SHALLOW WITH OXYMIZER AT 3L IN PLACE. PT OFTEN TAKES IT OFF, CURRENTLY I REPOSITIONED IT SATS AT 98% PTS ABDOMINAL FOLDS ARE VERY RED AND EXCORIATED AND STAY MOIST, CLEANSED AREA AND PROVIDED A PILLOW CASE TO HELP A BARRIER AND HELP KEEP IT DRY. BILAT FEET ARE PITTING EDEMA +3 ENCOURAGED PT TO KEEP THEM ELEVATED BUT HE CONTINUOUSLY THROWS FEET OOB. NO CURRENT NEEDS AT THIS TIME NOTED. CL IN REACH, BED IN LOWEST, SIDE RAILS X2 AND BUILT IN BED ALARM ON. WILL CPOC.
--- NOTE | 2017-05-17 09:45 | NUR ---
MAG REPLACEMENT DOSE 1/4 GIVEN FOR LOW MAG OF 1.3. WILL CPOC.
--- NOTE | 2017-05-17 10:37 | NUR ---
PT AWAKE AND KEEPS PUTTING FEET OOB. PT ALERT AND ORIENTED TO TIME, PLACE AND PERSON BUT NOT SITUATION. PT DOESNT UNDERSTAND WHY HE IS IN THE HOSPITAL. I EXPLAINED EVERTHING TO HIM AND HE STATED "WELL IM BEING DISCHARGED TODAY" NO ORDERS FOR DISCHARGE. WILL CTM. BED IN LOWEST, SIDE RAILS X2, CL IN REACH AND BUILT IN BED ALARM ON.
--- NOTE | 2017-05-17 11:57 | NUR ---
PT ATTEMPTING TO CLIMB OOB SET OFF BED ALARM PT WILL NOT STAY IN BED AND KEEPS ASKING FOR HIS FAMILY. I HAVE ATTEMPTED TO CALL THEM BUT NO ANSWER. ASSISTED PT BACK INTO BED AND ENCOURAGED HIM TO PLEASE USE HIS CL IF NEEDING UP. PT VERABLIZED UNDERSTANDING AND HAS USED CL ALL DAY SO FAR SO HOPEFULLY HE WILL USE IT. BUILT IN BED ALARM RESET, BED IN LOWEST, SIDE RAILS X2. WILL CPOC.
[2017-05-17 12:00] VITALS: BP 111/58
--- NOTE | 2017-05-17 12:57 | NUR ---
DOSE 2/4 OF MAG REPLACEMENT GIVEN PER EP.
--- NOTE | 2017-05-17 13:09 | NUR ---
FINALLY REACHED PTS EZEQUIEL. PTS STATES SHE IS COMING UP HERE LATER AND WILL STAY THE NIGHT WITH HIM TO TRY AND KEEP HIM CALM AND TO STAY OVERNIGHT. TALKED WITH PT AND HE AGREED TO STAY IN BED AND COOPERATE. NO FURTHER NEEDS AT THIS TIME. WILL CPOC.
--- NOTE | 2017-05-17 15:00 | NUR ---
PT SITTING UP IN BED RESTING CALM AND QUIETLY AT THIS TIME WATCHING TV. RR NONLABORED WITH OXYMIZER @3L IN PLACE. R.FA PIV INFUSING NS@30ML/HR. ARMSTRONG DRAINING TO GRAVITY. NO FURTHER NEEDS AT THIS TIME. WILL CTM.
--- NOTE | 2017-05-17 15:59 | NUR ---
DAVE CABALLERO NOTIFIED ME OF PTS O2 BEING 78% AND HIS OXYGEN BEING OFF. ENCOURAGED PT TO KEEP OXYGEN ON AND TEACHING DONE ON DISEASE PROCESS AND IMPORTANCE. PT VERBALIZED UNDERSTANDING AND STATES "ILL KEEP IT ON, MA'AM." OXYMIZER @3L IN PLACE AND PULSE OX NOW UP TO 92% WILL CTM.
[2017-05-17 16:00] VITALS: BP 126/69
--- NOTE | 2017-05-17 17:15 | NUR ---
PT SITTING UP IN BED EATING DINNER. RR NONLABORED WITH OXYMIZER @3L IN PLACE. PT DENIES ANY CURRENT PAIN OR NEEDS AT THIS TIME. CL IN REACH, BED IN LOWEST, SIDE RAILS X2 AND BUILT IN BED ALARM ON. WILL CPOC.
--- NOTE | 2017-05-17 17:38 | NUR ---
3/4 MAG REPLACEMENT GIVEN.
--- NOTE | 2017-05-17 18:07 | NUR ---
PT STILL WILL NOT WEAR TELEMETRY. OFTEN REMOVES IT OR PULLS AT IT. WILL TRY AGAIN LATER.
[2017-05-17 19:00] VITALS: BP 137/71
--- NOTE | 2017-05-17 22:50 | NUR ---
PT INCONTINENT OF STOOL. INCONTINENT CARE DONE. BEDBATH DONE. BED LINENS CAHNGED. PT REPOSITIONED IN BED FOR COMFORT. WILL CONTINUE TO MONITOR.
--- NOTE | 2017-05-17 23:23 | NUR ---
INITIAL ROUNDS COMPLETED AT 1920 HRS. PT PLACED BACK ON TELEMETRY AT THAT TIME. ASESSMENT COMPLETED AT 2030 HRS. VSS. UCAF PER CM HR 117. IV TO RFA WITH NS AT 30CC/HR. IV PATENT. O2 3L OXIMIZER. LUNGS DIMINISHED IN BASES BILAT. PT HAD 17 BEAT RUN OF V-TACH AT 2039 HRS. PT HAD O2 OFF. O2 PLACED BACK ON. PT ASYMPTOMATIC. NORCO PO GIVEN FOR C/O BACK PAIN. PT CURRENTLY RESTING WITH EYES CLOSED. RESP EVEN AND REGULAR. SR UP X2, CALL LIGHT WITHIN REACH, BED ALARM ON AND ARMSTRONG DRAINING CONCENTRATED URINE.
--- NOTE | 2017-05-18 00:48 | NUR ---
PT RESTING WITH EYES CLOSED. RESP EVEN AND REGULAR. SR UP X2, CALL LIGHT WITHIN REACH.
[2017-05-18 01:06] VITALS: BP 125/69
--- NOTE | 2017-05-18 02:49 | NUR ---
PT RESTING WITH EYES CLOSED. RESP EVEN AND REGULAR. SR UP X2, CALL LIGHT WITHIN REACH.
[2017-05-18 03:51] LABS: BASOPHILS 0.2 % (0-2); EOSINOPHILS 4.2 % (0-7); HEMATOCRIT 39.7 % (42.0-54.0); HEMOGLOBIN 11.5 g/dL (13.5-17.5); IMMATURE GRANULOCYTES 0.2 % (0-5); LYMPHOCYTES 11.1 % (15-50); MCH 29.3 pg (26.0-34.0); MCV 101.3 fL (80.0-100.0); MEAN PLATELET VOLUME 11.3 fL (7.4-10.4); MONOCYTES 14.9 % (2-11); NEUTROPHILS 69.4 % (40-80); PLATELET COUNT 185 10x3/uL (130-400); RBC 3.92 10x6/uL (4.20-6.10); RDW 13.8 % (11.5-14.5); WBC 8.1 10x3/uL (4.8-10.8)
[2017-05-18 04:10] LABS: ANION GAP 4.7 mmol/L (8-16); CALCIUM 8.1 mg/dL (8.5-10.1); CREATININE - SERUM 1.3 mg/dL (0.6-1.3); POTASSIUM - SERUM 3.1 mmol/L (3.5-5.1)
[2017-05-18 04:12] LABS: CARBON DIOXIDE 43.4 mmol/L (21.0-32.0)
[2017-05-18 04:27] VITALS: BP 122/68
--- NOTE | 2017-05-18 04:37 | NUR ---
CO2 43.4. MD AWARE AND LEVEL TRENDING DOWN. K+ 3.1. KCL 40 MEQ IN 180CC OF APPLE JUICE GIVEN PER PROTOCOL. WILL CONTINUE MONITOR.
--- NOTE | 2017-05-18 06:07 | NUR ---
VSS THROUGHOUT NIGHT. CAF/UCAF PER CM. PT STATES NORCO CONTROLS CHRONIC BACK PAIN. NEEDS MET; WILL CONTINUE TO MONITOR.
[2017-05-18 09:09] VITALS: BP 131/65
[2017-05-18 10:11] LABS: UPE RAND - ALBUMIN 31.7 % (()); UPE RAND - ALPHA 1 GLOBULIN 4.1 % (()); UPE RAND - ALPHA 2 GLOBULIN 17.5 % (()); UPE RAND - BETA GLOBULIN 24.7 % (())
[2017-05-18 12:48] VITALS: BP 111/66
--- NOTE | 2017-05-18 14:52 | NUR ---
Patient Name: KACEY CHAWLA Admission Status: ER Accout number: [id number] Admission Date: 05-11-2017 : 1945 Admission Diagnosis:HEART FAILURE, UNSPECIFIED Attending: JUDITH LOPEZ Current LOS: 7 Anticipated DC Date: 05-18-2017 Planned Disposition: Home with Home Health Primary Insurance: MEDICARE A & B PLANNED EXTERNAL PROVIDER: [facility] Discharge Planning Comments: * Is the patient Alert and Oriented? Yes 0 * How many steps to enter\exit or inside your home? NONE 0 * PCP DR LOPEZ 0 * Pharmacy [facility] [address] 0 * Preadmission Environment Home with Family 0 * ADLs Partial Dependent 0 * Partial ADLs (Assistance needed) Bathing Medication Management Transfers 0 * Equipment CPAP Oxygen Rolling Walker Wheelchair 0 * Other Equipment HOME AND PORTABLE OXYGEN [facility] - MEDICAL EQUIPMENT PROVIDER PREFERENCE 0 * List name and contact numbers for known caregivers / representatives who currently or will assist patient after discharge: EZEQUIEL CHAWLA, SPOUSE, 0 * Community resources currently utilized None 0 * Please name any agencies selected above. NONE 0 * Additional services required to return to the preadmission environment? Yes * Can the patient safely return to the preadmission environment? Yes 0 * Has this patient been hospitalized within the prior 30 days at any hospital? No 0 CM MET WITH PT AND SPOUSE IN ROOM TO DISCUSS DISCHARGE PLANNING AND NEEDS. PT CONTINUALLY FELL ASLEEP DURING INTERVIEW; PT'S SPOUSE REPORTS PT LIVING AT HOME DEPENDENT WITH HER FOR BATHING, MEDICATION MANAGEMENT AND SOMETIMES TRANSFER ASSISTANCE. PT HAS OXYGEN, CPCP, ROLLING WALKER AND ELECTRIC WHEELCHAIR FROM [facility]. PT HAS OUTSIDE SERVICES ASSISTING IN THE HOME. CM DISCUSSED AVAILABILITY OF HOME HEALTH, REHAB SERVICES AND MEDICAL EQUIPMENT. PT'S SPOUSE HAS DISCUSSED HOME HEALTH WITH THE DOCTOR AND WOULD LIKE HOME HEALTH UNTIL THEY CAN DECIDE ON HOSPICE AT HOME. CHOICE SIGNED FOR [facility]. PT'S SPOUSE TO TRANSPORT PT HOME AT DISCHARGE TODAY. IMPORTANT MESSAGE FROM MEDICARE PROVIDED AND EXPLAINED. CM CALLED [facility], , SPOKE TO ADELA AND PROVIDED REFERRAL FOR ADMIT TOMORROW. CM FAXED DISCHARGE INFORMATION AND REFERRAL TO [facility] AT [phone]. [facility]'S SP[facility]SE REQUEST, , SPOKE TO RODERICK AND REQUESTED PT'S HOME OXYGEN UNIT BE SERVICED TOMORROW AT FAMILY REQUEST. RODERICK WILL CALL PT'S SPOUSE AND SCHEDULE SERVICE FOR TOMORROW. CM NOTIFIED PT AND SPOUSE IN ROOM, SPOUSE DENIES FURTHER DISCHARGE NEEDS. Business Planner: Estevan Clemente
--- NOTE | 2017-05-18 16:00 | NUR ---
LETHARGIC. AROUSES TO STURNUM RUB. UNABLE TO STAY AWAKE THROUGH ONE FULL SENTENCE. AT BEDSIDE. NOTIFY OF CURRENT STATUS. DISCHARGE HELD UNTIL TOMORROW. POSSIBLE DC TO HOME HOSPICE. ARMSTRONG DRAINING AT BEDSIDE SECURED TO INNER THIGH. NOTIFY SPOUSE OF DISCHARGE BEING HELD. SPOUSE EXPRESSES RELIEF. ENCOURAGE TO BE AT HOSPITAL AT 0700 05/19/17 TO SPEAK WITH . BED LOCKED AND LOW. CALL LIGHT IN REACH. TWO SIDERAILS UP. BED ALARM ON. 103 UNCONTROLLED AFIB ON TELEMETRY. REFUSE SCDs.
[2017-05-18 17:14] VITALS: BP 120/62
[2017-05-18 19:00] VITALS: BP 102/84
--- NOTE | 2017-05-18 22:32 | NUR ---
PATIENT IS ALERT AND RESTING IN BED WATCHING TV. CALL LIGHT IN REACH.
[2017-05-19] VITALS: BP 144/77
--- NOTE | 2017-05-19 01:36 | NUR ---
Patient is in bed watching tv, has pulled off telemtry 3 times during this shift. Telemtry replaced, call light in reach.
--- NOTE | 2017-05-19 02:30 | NUR ---
LYING IN BED, CALL LIGHT IN REACH. WILL CONTINUE WITH PLAN OF CARE
[2017-05-19 04:00] VITALS: BP 131/88
--- NOTE | 2017-05-19 06:07 | NUR ---
Patient is alert, in bed with call light in reach. Denies any needs at this time.
[2017-05-19] MEDS ORDERED: CIPRO500 MG PO (07:50)
[2017-05-19 08:17] VITALS: BP 144/76
--- NOTE | 2017-05-19 11:31 | NUR ---
Patient Name: KACEY CHAWLA Encounter No: [id number] : 1945 Primary Insurance: MEDICARE A & B Anticipated DC Date: 05-19-2017 Planned Disposition: Home with Home Health External Planned Provider: [facility] DCP follow-up note: CM RECEIVED DISCHARGE ORDER, MET WITH PT AND SPOUSE IN ROOM, PT WANTS TO GO HOME, SPOUSE IN AGREEMENT WITH DISCHARGE HOME TODAY WITH HOME HEALTH. SPOUSE TO TRANSPORT HOME. CM CALLED [facility], , SPOKE TO JHON AND PROVIDED UPDATED REFERRAL FOR HOME HEALTH ADMISSION TOMORROW. CM FAXED DISCHARGE INFORMATION TO [facility] AT [phone]. METAL MOCKUP MAKER NURSE NOTIFIED. Estevan Clemente, CASE MANAGEMENT
--- NOTE | 2017-05-19 11:39 | NUR ---
PT SITTING UP ON BEDSIDE. OXIMYIZER IN. GETTING DRESSED FOR DC.
--- NOTE | 2017-05-19 11:58 | NUR ---
DISCHARGE INSTRUCTIONS GIVEN TO BOTH PT AND FAMILY. ALSO A COPY PLACED IN FOLDER FOR FAMILY TO TAKE HOME. BOTH PARTIES UNDERSTAND. TO CAR VIA .
== END 2017-05-19 12:00 | disposition home health service (06) | DRG 291 ==
LOC: D.ER 22:10 → D.M2 23:58
PROVIDERS: Emergency Medicine; Family Medicine; Internal Medicine Nephrology; ADMIT Family Medicine
PROC: 0T9B70Z Drainage of Bladder with Drainage Device, Via Natural or Artificial Opening (ICD-10-PCS; principal; 2017-05-11)
DX: I13.0 Hypertensive heart and chronic kidney disease with heart failure and stage 1 through stage 4 chronic kidney disease, or unspecified chronic kidney disease (principal); I50.23 Acute on chronic systolic (congestive) heart failure; N17.9 Acute kidney failure, unspecified; N13.8 Other obstructive and reflux uropathy; N13.30 Unspecified hydronephrosis; E87.3 Alkalosis; T83.83XA Hemorrhage due to genitourinary prosthetic devices, implants and grafts, initial encounter; N18.9 Chronic kidney disease, unspecified; E11.22 Type 2 diabetes mellitus with diabetic chronic kidney disease; I25.10 Atherosclerotic heart disease of native coronary artery without angina pectoris; I73.9 Peripheral vascular disease, unspecified; I48.91 Unspecified atrial fibrillation; E78.5 Hyperlipidemia, unspecified; E87.5 Hyperkalemia; N40.1 Benign prostatic hyperplasia with lower urinary tract symptoms; G47.33 Obstructive sleep apnea (adult) (pediatric); K80.20 Calculus of gallbladder without cholecystitis without obstruction; K57.90 Diverticulosis of intestine, part unspecified, without perforation or abscess without bleeding; I42.0 Dilated cardiomyopathy; Z95.5 Presence of coronary angioplasty implant and graft; Z91.19 Patient's noncompliance with other medical treatment and regimen; E66.01 Morbid (severe) obesity due to excess calories; J44.9 Chronic obstructive pulmonary disease, unspecified; Z66 Do not resuscitate; I27.2 Other secondary pulmonary hypertension; I08.2 Rheumatic disorders of both aortic and tricuspid valves; E87.6 Hypokalemia; E83.42 Hypomagnesemia; Z72.0 Tobacco use; K21.9 Gastro-esophageal reflux disease without esophagitis; Y84.8 Other medical procedures as the cause of abnormal reaction of the patient, or of later complication, without mention of misadventure at the time of the procedure

== ENCOUNTER 2017-05-20 20:02 | Inpatient (IN) | payer MEDICARE ==
[~2017-05-20] VITALS: Ht 185.4 cm; Wt 129.2 kg
--- NOTE | ~2017-05-20 | CN ---
PATIENT NAME:KACEY CHAWLA MEDICAL RECORD: [id number] : 43 LOCATION:D. D.2128 ADMIT DATE: 05/20/17 ACCOUNT: [id number] CONSULTING PHYSICIAN: AICHA ADAMS MD REFERRING PHYSICIAN: CLEVE LOPEZ DO DATE OF CONSULTATION: 05/21/2017 CONSULT REQUESTING PHYSICIAN: Cleve Lopez DO REASON FOR CONSULTATION: Cjksf-ku-wevvrko hypoxic hypercapnic respiratory failure and respiratory acidosis. HISTORY OF PRESENT ILLNESS: Mr. Chawla is a 72-year-old gentleman who was just discharged home, who has history of congestive heart failure and obstructive sleep apnea. The patient could not breathe. The patient was brought into the ER. ABG was done and his pH was 7.3 and CO2 was 73. Put on BiPAP, now he is more awake and alert. Denies any fever and chill. There are no night sweats. REVIEW OF THE SYSTEMS: As in history of present illness. PAST MEDICAL HISTORY: 1. Morbid obesity. 2. Obstructive sleep apnea, noncompliant with CPAP machine. 3. Coronary artery disease. 4. History of mild aortic stenosis. 5. History of mild pulmonary hypertension with right ventricular systolic pressure of 44. 6. History of hypertension. 7. Atrial fibrillation. 8. Diabetes. 9. Hyperlipidemia. 10. Gastroesophageal reflux disease. PAST SURGICAL HISTORY: 1. He had EGD for GI bleed. 2. Umbilical hernia repair. 3. Right nephrectomy. ALLERGIES: There are no known drug allergies. PRESENT MEDICATIONS: Intexys was reviewed. PERSONAL AND SOCIAL HISTORY: The patient is a current everyday smoker. He is nondrinker. FAMILY HISTORY: Noncontributory. PHYSICAL EXAMINATION: GENERAL: Now, the patient is lying comfortably. He is awake and alert. VITAL SIGNS: The blood pressure is 163/88, pulse is 90, respirations 24, temperature is 97.9, and SpO2 98% on 5 liters nasal cannula. HEENT: Conjunctivae are pink. Sclerae are not icteric. NECK: Neck is supple. There is elevated JVD. CHEST: There are bilateral crackles. No wheezing. HEART: Rhythm regular. Normal sounds. No murmur. CONSULT REPORT [id number] KACEY CHAWLA ABDOMEN: Abdomen is soft. Bowel sounds are present. No hepatosplenomegaly. RECTAL: Deferred. EXTREMITIES: No cyanosis. No clubbing. There is 1+ pedal edema. SKIN: The skin is warm. Normal turgor. CENTRAL NERVOUS SYSTEM: The patient is awake and alert. There are no obvious cranial nerve abnormalities. The gait was not tested. DIAGNOSTIC DATA: Chest radiograph; there is increased interstitial marking. LABORATORY DATA: CBC; WBC is 9.1, hemoglobin 11.9, hematocrit 38.8, and platelet count is 199. ABG; pH is 7.30, pCO2 is 73.7, pO2 is 83, and bicarb 37. IMPRESSION: 1. Vkvfg-xn-tcfplys hypoxic hypercapnic respiratory failure. 2. Respiratory acidosis secondary to #1. 3. Pulmonary edema. 4. Lhsnl-uj-zkauvif CHF. 5. Mild pulmonary hypertension. 6. Morbid obesity. RECOMMENDATIONS: 1. Continue the BiPAP at night as well as when the patient is napping during the day. 2. Lasix 40 mg q. 8. 3. Start him on Diamox 250 mg q. 8. 4. Supplemental oxygen. 5. Albuterol and ipratropium nebulizer. 6. Check ammonia level. 7. Cardiac workup by Dr. Dubois. Dr. Lopez, thank you for involving me in the care of Mr. Chawla. TRANSINT:[id number] Voice Confirmation ID: [id number] DOCUMENT ID: [id number] AICHA ADAMS MD CC: CLEVE LOPEZ DO [id number] DICTATION DATE: 05/21/17 1559 CROSSBAR FRAME WIRER: 05/21/172004 ADM IN [facility] [address] [place] [address]
[~2017-05-20 20:02] MED LIST changes: +CIPRO500 MG PO; +COZAAR100 MG PO; +HYDROCHLOROTH12.5 M1 PO; +HYDROCHLOROTHIA25 MG PO; +ULTRAM50 MG PO; +ZETIA10 MG PO
[2017-05-20 21:42] LABS: BASOPHILS 0.2 % (0-2); EOSINOPHILS 3.3 % (0-7); HEMATOCRIT 38.8 % (42.0-54.0); HEMOGLOBIN 11.9 g/dL (13.5-17.5); IMMATURE GRANULOCYTES 0.3 % (0-5); LYMPHOCYTES 6.3 % (15-50); MCH 29.2 pg (26.0-34.0); MCHC 30.7 g/dL (31.0-37.0); MCV 95.1 fL (80.0-100.0); MEAN PLATELET VOLUME 11.1 fL (7.4-10.4); MONOCYTES 12.2 % (2-11); NEUTROPHILS 77.7 % (40-80); PLATELET COUNT 199 10x3/uL (130-400); RBC 4.08 10x6/uL (4.20-6.10); RDW 13.8 % (11.5-14.5); WBC 9.1 10x3/uL (4.8-10.8)
[2017-05-20 22:05] LABS: ALBUMIN 2.6 g/dL (3.4-5.0); ALKALINE PHOSPHATASE 71 U/L (46-116); ALT (SGPT) 13 U/L (10-68); BILIRUBIN - TOTAL 0.69 mg/dL (0.2-1.3); CALC OSMOLALITY 288 mosm/kg (275-300); CHLORIDE - SERUM 100 mmol/L (98-107); GLUCOSE 166 mg/dL (74-106); POTASSIUM - SERUM 3.4 mmol/L (3.5-5.1); SODIUM 140 mmol/L (136-145); UREA NITROGEN 28 mg/dL (7-18); eGFR NON AFRICAN AMERICAN 78 mL/min (90-120)
[2017-05-20 22:11] LABS: PRO BNP 3295 pg/mL (0-125)
--- NOTE | 2017-05-21 01:15 | NUR ---
REPORT RECEIVED FROM KIRILL IN ER. PT HAD A TOTAL OF 80MG OF LASIX IN ER, LAST DOSE OF LASIX AT 2301 40MG. ALSO GAVE PT NORCO FOR PAIN RELIEF AT 2301, PT WAS C/O CHRONIC BACK PAIN. IV 22G IN LEFT ARM. POTASSIUM IS 3.4, KIRILL STATES THEY ARE NOT ADDRESSING POTASSIUM AND STATES PT SHOULD BE TAKING 20 MEQ DAILY. UNKNOWN IF PT HAS TAKEN POTASSIUM. PT WAS D/C YESTURDAY FROM HOSPITAL. PT IS ON BYPAP/ 2L OF O2 WILL ASSESS PT WHEN ARRIVE TO ROOM 2127
--- NOTE | 2017-05-21 02:31 | NUR ---
PT ARRIVE TO ROOM 2127. DYSPNEA AND LABORED BREATHING. TRANSFER PT TO BED FROM [facility] WITH SLIDE BOARD AND 4 PEOPLE. PT INCONT A LARGE AMOUNT OF ODOROUS URINE. PT CLEANED, DRY PADS AND SHEETS. PT HAS AN IV LEFT WRIST S/L. PT IS PALE, WARM AND DRY. PT FALLING ASLEEP. MOUTH BREATHER. BIPAP PUT ON. RR 12. ALARM FOR PT ON AND ACTIVE. BED LOW AND CALL LIGHT IN REACH. WILL CPOC
--- NOTE | 2017-05-21 02:43 | NUR ---
CALL LIGHT IN REACH, WILL CONTINUE WITH PLAN OF CARE.
--- NOTE | 2017-05-21 03:11 | NUR ---
FOLLEY PLACEMENT. 16FR CATH STAT LOCKED TO RIGHT LEG. APPROX 500CC OF CLOUDY YELLOW URINE. PT ALSO HAD A MODERATE AMOUNT OF INCONT PRIOR TO FOLLEY. PT NOW CLEAN, DRY. NEW LINEN. PT HAS A LUKAS PRESSURE PAD UNDER BUTTOCK. ALARM ON AND ACTIVE. PT DENIES ANY NEEDS. NO S/S OF DISTRESS WILL CPOC
[2017-05-21 04:47] VITALS: BP 194/126; BMI 37.5
[2017-05-21 07:07] VITALS: BP 136/85
--- NOTE | 2017-05-21 07:39 | NUR ---
PT ASLEEP. RESPIRATIONS 18. IRREGULAR. UNLABORED. PT BP 136/85 . PT HAS NO S/S OF DISTRESS. WILL CPOC LUKAS ALARM ON AND ACTIVE
--- NOTE | 2017-05-21 07:52 | NUR ---
PT SITTING UP IN BED SLEEPING, BIPAP ON AND PATENT. PT WITH NO S/S DISTRESS NOTED. RR EVEN AND UNLABORED WILL CONT TO MONITOR
[2017-05-21 08:00] VITALS: BP 163/88
[2017-05-21 12:24] VITALS: Ht 185.4 cm; Wt 129.2 kg
--- NOTE | 2017-05-21 14:12 | NUR ---
PT IS REFUSING SCDS
[2017-05-21 16:00] VITALS: BP 126/61
[2017-05-21 16:10] VITALS: BP 148/103
--- NOTE | 2017-05-21 16:22 | NUR ---
PT SITTING UP IN BED WATCHING TV, DENIES NEEDS OTHER THAN A DRINK-GIVEN. WILL CONT TO MONITOR
[2017-05-21 19:00] VITALS: BP 123/61
--- NOTE | 2017-05-21 21:10 | NUR ---
PATIENT IS ALERT, RESTING IN BED WATCHING TV. CALL LIGHT IN REACH, DENIES PAIN OR NEEDS AT THIS TIME.
[2017-05-22 04:00] VITALS: BP 124/63
[2017-05-22 04:44] LABS: BASOPHILS 0.3 % (0-2); EOSINOPHILS 3.5 % (0-7); HEMOGLOBIN 11.1 g/dL (13.5-17.5); IMMATURE GRANULOCYTES 0.6 % (0-5); LYMPHOCYTES 9.1 % (15-50); MCH 28.8 pg (26.0-34.0); MCV 96.1 fL (80.0-100.0); MONOCYTES 12.2 % (2-11); NEUTROPHILS 74.3 % (40-80); PLATELET COUNT 223 10x3/uL (130-400); RBC 3.85 10x6/uL (4.20-6.10); RDW 14.1 % (11.5-14.5); WBC 7.1 10x3/uL (4.8-10.8)
[2017-05-22 05:02] LABS: ALBUMIN 2.6 g/dL (3.4-5.0); BILIRUBIN - TOTAL 0.5 mg/dL (0.2-1.3); CALCIUM 8.8 mg/dL (8.5-10.1); CREATININE - SERUM 1.2 mg/dL (0.6-1.3); MAGNESIUM - SERUM 1.6 mg/dL (1.8-2.4); PHOSPHOROUS 3.8 mg/dL (2.5-4.9); PROTEIN - SERUM 6.5 g/dL (6.4-8.2)
[2017-05-22 05:07] LABS: POTASSIUM - SERUM 2.4 mmol/L (3.5-5.1)
[2017-05-22 05:08] LABS: CARBON DIOXIDE 42.4 mmol/L (21.0-32.0)
--- NOTE | 2017-05-22 07:30 | NUR ---
AM ROUNDS COMPLETED. PT A&O SITTING UP IN BED WAITING ON BREAKFAST WITH HIS AT BEDSIDE. RR NONLABORED WITH NC @5L IN PLACE. RR ARE VERY SHALLOW AND PT OFTEN COUGHS AND SOUNDS WET/CONGESTED BUT PT DENIES BEING ABLE TO COUGH ANYTHING UP. PTS POTASSIUM CL @2.[address] AND DOSE 2/3 GIVEN FOR REPLACEMENT MEASURES. PT SWALLOWED WITHOUT ANY DIFFICULTIES. PT DENIES ANY CURRENT PAIN OR FURTHER NEEDS AT THIS TIME. CL IN REACH, BED IN LOWEST, SIDE RAILS X2, WILL CPOC.
--- NOTE | 2017-05-22 10:08 | NUR ---
PTS L.WRIST PIV IS FALLING OUT. REMOVED COMPLETELY WITH CATHETER TIP FULLY INTACT. 20 GUAGE PLACED TO R.FA X1 STICK, DATED AND SL. REPOSITIONED PT UP IN BED FOR COMFORT REQUESTED. DOSE 3/3 POTASSIUM GIVEN FOR EP WILL RECHECK LAB IN 4 HOURS PER PROTOCOL. PT RESTING AND DENIES ANY FURTHER NEEDS AT THIS TIME. CL IN REACH, BED IN LOWEST, ARMSTRONG DRAINING TO GRAVITY OFF L.SIDE OF BED WITH STAT LOCK SECURED TO L.INNER THIGH. WILL CPOC.
--- NOTE | 2017-05-22 11:49 | NUR ---
PT SITTING UP IN BED RESTING WITH VISITORS AT BEDSIDE. RR NONLABORED WITH NC @5L IN PLACE. PT DENIES ANY CURRENT PAIN OR FURTHER NEEDS AT THIS TIME. CL IN REACH. WILL CPOC.
[2017-05-22 12:00] VITALS: BP 113/76
--- NOTE | 2017-05-22 15:03 | NUR ---
POTASSIUM RECHECK NOW 3.3 PROVIDED PT WITH EP REPLACEMENT LIQUID. PT SWALLOWED MIXED IN OJ. PT RESTING WITH FAMILY AT BEDSIDE. RR NONLABORED WITH NC @5L IN PLACE. PT DENIES ANY CURRENT PAIN OR NEEDS. CL IN REACH. WILL CPOC.
--- NOTE | 2017-05-22 17:10 | NUR ---
Patient Name: KACEY CHAWLA Admission Status: ER Accout number: [id number] Admission Date: 05-20-2017 : 1945 Admission Diagnosis: Attending: JUDITH LOPEZ Current LOS: 2 Anticipated DC Date: Planned Disposition: Home with Home Health Primary Insurance: MEDICARE A & B PLANNED EXTERNAL PROVIDER: [facility] Discharge Planning Comments: * Is the patient Alert and Oriented? Yes 0 * How many steps to enter\exit or inside your home? NONE 0 * PCP DR. LOPEZ 0 * Pharmacy [facility] [address] 0 * Preadmission Environment Home with Family 0 * ADLs Partial Dependent 0 * Partial ADLs (Assistance needed) Bathing Medication Management 0 * Equipment CPAP Oxygen Rolling Walker Wheelchair 0 * Other Equipment HOME AND PORTABLE OXYGEN [facility] - MEDICAL EQUIPMENT PROVIDER 0 * List name and contact numbers for known caregivers / representatives who currently or will assist patient after discharge: EZEQUIEL CHAWLA, SPOUSE, 0 * Community resources currently utilized Home Health 0 * Please name any agencies selected above. [facility] 0 * Additional services required to return to the preadmission environment? No 0 * Can the patient safely return to the preadmission environment? Yes 0 * Has this patient been hospitalized within the prior 30 days at any hospital? Yes 0 CM MET WITH PT IN ROOM TO DISCUSS DISCHARGE PLANNING AND NEEDS. PT REPORTS LIVING AT HOME DEPENDENT UPON TO ASSIST HIM NEEDED. PT HAS CPAP, OXYGEN (HOME AND PORTABLE), ROLLING WALKER AND WHEELCHAIR FROM [facility]. PT HAS HOME HEALTH WITH [facility]. CM DISCUSSED AVAILABILITY OF HOME HEALTH, REHAB SERVICES AND MEDICAL EQUIPMENT. PT REPORTS PLAN TO DISCHARGE BACK HOME WITH HOME HEALTH AGAIN, HE DOES NOT WANT INPATIENT OR NURSING HOME FACILITY PLACEMENT. PT REPORTS HIS WILL PICK HIM UP FOR DISCHARGE HOME. PT STATES THAT CM WILL NEED TO SPEAK TO HIS TO CONFIRM PLANS. PT PLANS TO DISCHARGE BACK HOME WITH [facility], DIRECTED CM TO SPEAK TO HIS TO VERIFY THIS. CM TO SPEAK TO PT'S SPOUSE REGARDING DISCHARGE PLAN. Day Care Teacher: Estevan Clemente
--- NOTE | 2017-05-22 17:46 | NUR ---
PT SITTING UP IN BED EATING DINNER WITH FAMILY AT BEDSIDE. RR NONLABORED. REPLACED PTS STAT LOCK IT WAS PEELING OFF. FAMILY AT BEDSIDE. PT DENIES ANY CURRENT NEEDS AT THIS TIME. CL IN REACH. WILL CPOC.
[2017-05-22 17:54] VITALS: BP 118/64
[2017-05-22 20:00] VITALS: BP 113/500
--- NOTE | 2017-05-22 21:00 | NUR ---
PATIENT IS ALERT, IV IS SALINE LOCKED IN RIGHT FA AND O2 AT 5 L VIA NC. PAIN MEDICATION REQUESTED WITH EFFECTIVE RESULTS, ARMSTRONG IS PATENT. CALL LIGHT IN REACH.
[2017-05-23] VITALS: BP 118/70
--- NOTE | 2017-05-23 00:16 | NUR ---
PT RESTING WITH EYES CLOSED. RESP EVEN AND REGULAR. BIPAP INUSE. WILL CONTINUE TO MONITOR.
[2017-05-23 04:00] VITALS: BP 164/92
[2017-05-23 05:10] LABS: BASOPHILS 0.1 % (0-2); EOSINOPHILS 4.4 % (0-7); HEMATOCRIT 36.4 % (42.0-54.0); HEMOGLOBIN 11.1 g/dL (13.5-17.5); IMMATURE GRANULOCYTES 0.7 % (0-5); MCH 29.3 pg (26.0-34.0); MCHC 30.5 g/dL (31.0-37.0); MEAN PLATELET VOLUME 10.4 fL (7.4-10.4); MONOCYTES 10.2 % (2-11); NEUTROPHILS 73.6 % (40-80); PLATELET COUNT 236 10x3/uL (130-400); RBC 3.79 10x6/uL (4.20-6.10); WBC 7.5 10x3/uL (4.8-10.8)
[2017-05-23 05:26] LABS: ALBUMIN 2.5 g/dL (3.4-5.0); BILIRUBIN - TOTAL 0.3 mg/dL (0.2-1.3); CALCIUM 8.4 mg/dL (8.5-10.1); CARBON DIOXIDE 38.2 mmol/L (21.0-32.0); CREATININE - SERUM 1.2 mg/dL (0.6-1.3); PROTEIN - SERUM 6.6 g/dL (6.4-8.2)
[2017-05-23 05:30] LABS: POTASSIUM - SERUM 3.2 mmol/L (3.5-5.1)
--- NOTE | 2017-05-23 05:31 | NUR ---
PATIENT SITTING UP IN BED ALERT AND WATCHING TV, STATES PENIS IS HURTING DUE TO HIM PULLING AT HIS ARMSTRONG EARLY YESTERDAY. BLOOD TINGED URING NOTED IN ARMSTRONG. PLACEMENT OF THE ARMSTRONG WAS CHECKED AND IS IN PLACE. CALL LIGHT IN REACH, WILL CONTINUE TO MONITOR.
--- NOTE | 2017-05-23 07:00 | NUR ---
ROUNDING DONE WITH AT BEDSIDE. PATIENT IS A DNR CODE STATUS. ON HEART MONITOR SHOWING UCAF, HR 122. ON 5L PER NC. ON EP, WITH K+ 3.2. WILL REPLACE WITH THE SUPPLEMENTS. RIGHT FOREARM SEEN WITH SALINE LOCK. BIPAP MACHING AT BEDSIDE. ARMSTRONG CATH SEEN WTIH SLIGHT LIGHT TINGED RED URNIE, WAS PASSED IN REPORT THAT HE PULLS ON IT. PATIENT REFUSES TO WEAR THE SCD'S. WILL MONITOR.
[2017-05-23 08:10] VITALS: BP 175/99
--- NOTE | 2017-05-23 08:21 | NUR ---
COMPLAINTS OF "STUFFY NOSE". HUMMIDIFIED WATER PLACED TO NASAL CANNULA.
--- NOTE | 2017-05-23 09:41 | NUR ---
09-CLEANED UP FROM INCONT OF STOOL. BUTTOCK IS EXCORATED, CALMOSEPTINE APPLIED. TURN TO RIGHT SIDE WITH PILLOW BEHIND BACK FOR COMFORT. TEACHING DONE R/T SKIN BREAKDOWN IF STAYING ON BACK AT ALL TIMES. 30-CALLED TO ROOM WITH PATIENT THINKING HE HAS AN ACCIDENT AGAIN. PATIENT IS LAYING ON BACK ON TOP OF PILLOW. ENFORCED NEED TO STAY OFF BACK R/T PRESSURE AREAS. REPLIES, " I CAN"T LAY LIKE THAT". TURNED TO RIGHT SIDE AGAIN WITH PILLOW BEHIND BACK.
--- NOTE | 2017-05-23 09:51 | NUR ---
POWERED POTASSIUM MIXED WITH PATIENT'S MOUNTAIN DEW PER HIS REQUEST.
--- NOTE | 2017-05-23 10:15 | NUR ---
CALLED INTO PT'S ROOM. HE IS CURRENTLY RECEIVING NEB TX. PT IS NOW REQUESTING TO TURN ON HIS SIDE AFTER HIS BREATHING TREATMENT IS COMPLETE. WILL CHECK BACK AND REPOSITION PATIENT.
--- NOTE | 2017-05-23 10:54 | NUR ---
COMPLAINTS OF LOW BACK PAIN 04/09. NORCO GIVEN PER REQUEST.
--- NOTE | 2017-05-23 11:04 | NUR ---
TO CALL AND I ASKED IF WE COULD CLARIFY HIS HOME MEDS. SHE REPLIES THAT THE AMBULANCE GUYS "TOOK MY COPY OF THE MEDS". SHE REPORTS THAT SHE WILL BRING ME THE BOTTLES LATER TODAY TO LOOK AT AND CLARIFY.
--- NOTE | 2017-05-23 12:27 | NUR ---
CALLED INTO PT'S ROOM VIA CALLBELL. HE HAD SPILLED HIS CHOCOLATE ENSURE ALL OVER HIS BED. PT WAS CLEANED UP AND HIS BEDDING AND GOWN WERE CHANGED. PT HAD EXPERIENCED DYSPNEA WHILE LAYING DOWN FLAT FOR THIS PERSONAL CARE, SO HE HAD TO TAKE SEVERAL BREAKS TO RAISE THE HOB. PT WAS ENCOURAGED TO KEEP COUGHING AND DEEP BREATHING. D/T SOB W/ MINIMAL EXERTION, FATIGUE, AND WEAKNESS, PT WAS NOT ABLE TO ASSIST VERY MUCH WITH BED MOBILITY COMPARED WITH EARLIER TODAY. PT AGREES THAT HE WILL LIKELY NEED TO GO TO REHAB POST HOSPITAL STAY DUE TO GENERALIZED WEAKNESS AND IMMOBILITY. WILL CONT TO MONITOR.
[2017-05-23 12:32] VITALS: BP 167/105
--- NOTE | 2017-05-23 14:06 | NUR ---
1315-PATIENT IS MORE CONFUSED, PULLING OFF HEART MONITOR AND GOWN. PLACED ON BIPAP AND INSTRUCTED PATIENT TO TRY AND LEAVE ON.
[2017-05-23 15:39] VITALS: BP 167/105
--- NOTE | 2017-05-23 15:43 | NUR ---
PATIENT AGAIN TO HAVE HIS NASAL CANNULA OFF WHILE A VISITOR IS TALKING TO HIM. I REPLEACED IT AGAIN AND INSTRUCTED IN THE USE OF KEEPING IT ON. HE HAS PULLED HIS HEART MONITOR OFF AGAIN. WILL NOT WEAR IT. WILL TRY TO KEEP IT ON HIM. WILL CPOC.
--- NOTE | 2017-05-23 16:13 | NUR ---
PLACED PATIENT AGAIN ON NASAL CANNULA AND HEART MONITOR. ASKED IF HE WANTED TO WEAR HIS BIPAP INSTEAD AND HE REPLIED NO. WILL CONTINUE TO FOLLOW AND MONITOR THE NSALA CANNULA AND HEART MONITOR FOR SAFETY. URINE IN ARMSTRONG CATH TUBING IS RED WITH 1 SMALL CLOT. ASKED PATIENT IF HE HAS BEEN PULLING ON IT AND HE REPLIED NO BUT EVERYTIME WE COME INTO THE ROOM, HIS GOWN IS OFF AND MONITOR.
--- NOTE | 2017-05-23 18:33 | NUR ---
TO BRING IN HOME MEDS, WILL PLACE IN MED REC.
[2017-05-23] MEDS ORDERED: GLUCOPHAGE1000 MG PO (18:40)
[2017-05-23] MEDS ORDERED: ROPINIROLE HCL2 MG PO (18:41)
[2017-05-23] MEDS ORDERED: GLYBURIDE2.5 MG PO (18:41)
[2017-05-23] MEDS ORDERED: HYDROCHLOROTH12.5 M1 PO (18:42)
[2017-05-23] MEDS ORDERED: ZOCOR40 MG PO (18:42)
[2017-05-23] MEDS ORDERED: NITROSTAT0.4 MG SL (18:43)
--- NOTE | 2017-05-23 19:23 | NUR ---
RESUMED CARE OF PT, LYING IN BED RESPIRATIONS EVEN AND UNLABORED ON 5LPM VIA NC. 107 UCAF ON TELEMETRY. RED TINGED URINE TO ARMSTRONG. AT BEDSIDE, PLAN OF CARE DISCUSSED. REQUESTS PAIN MEDICATION. CALL LIGHT IN REACH. WILL CONTINUE TO MONITOR. SEE NURSE ASSESSMENT.
[2017-05-23 20:32] VITALS: BP 159/111
[2017-05-24 01:18] VITALS: BP 148/72
--- NOTE | 2017-05-24 01:36 | NUR ---
LYING IN BED WITH EYES CLOSED, WILL CONTINUE TO MONITOR. CALL LIGHT IN REACH.
[2017-05-24 04:34] LABS: BASOPHILS 0.1 % (0-2); EOSINOPHILS 0.6 % (0-7); HEMATOCRIT 42.4 % (42.0-54.0); HEMOGLOBIN 13.2 g/dL (13.5-17.5); IMMATURE GRANULOCYTES 0.5 % (0-5); LYMPHOCYTES 3.8 % (15-50); MCH 29.7 pg (26.0-34.0); MCHC 31.1 g/dL (31.0-37.0); MCV 95.3 fL (80.0-100.0); MEAN PLATELET VOLUME 11.6 fL (7.4-10.4); MONOCYTES 10.2 % (2-11); NEUTROPHILS 84.8 % (40-80); PLATELET COUNT 277 10x3/uL (130-400); RBC 4.45 10x6/uL (4.20-6.10)
[2017-05-24 04:35] LABS: WBC 17.3 10x3/uL (4.8-10.8)
[2017-05-24 04:56] LABS: ALBUMIN 2.7 g/dL (3.4-5.0); ANION GAP 7.6 mmol/L (8-16); BILIRUBIN - TOTAL 0.88 mg/dL (0.2-1.3); CALCIUM 8.9 mg/dL (8.5-10.1); CARBON DIOXIDE 36.6 mmol/L (21.0-32.0); POTASSIUM - SERUM 4.2 mmol/L (3.5-5.1); PROTEIN - SERUM 7.5 g/dL (6.4-8.2)
[2017-05-24 05:55] VITALS: BP 155/96
--- NOTE | 2017-05-24 06:16 | NUR ---
AM MEDS PASSED, BED BATH AND LINEN CHANGED. INCONTINENT EPISODE CLEANED UP. NO CHANGES FROM PREVIOUS ASSESSMENT. CALL LIGHT IN REACH. WILL CONTINUE TO MONITOR.
--- NOTE | 2017-05-24 07:53 | NUR ---
AM ROUNDS - PT IS IN BED NAD AWAKE AT THIS TIME. NO YELLOW BAND . MONITOR SHOWING UNCONT AFIB, HR 116. ARMSTRONG DRAINING YELLOW. PT ON 5L O2 VIA NC. IV TO RIGHT FA, SL. BED AT LOWEST POSITION. CALL WADDELL IN REACH. SIDE RAILS UP X2. WILL CONTINUE OT MONITOR
[2017-05-24 08:05] VITALS: BP 171/87
--- NOTE | 2017-05-24 10:48 | NUR ---
FLUSHED ARMSTRONG WITH NS, 40CC. MINIMAL RETURN. BLADDER SCAN COMPLETE. SCAN SHOWED 865CC.DR. MORALES NOTIFIED. NEW ORDERS. CONSULT DR. NEELY. CALLED DR. NEELY AND LEFT MESSAGE TO CALL BACK. WILL CONTINUE TO MONITOR
--- NOTE | 2017-05-24 13:07 | NUR ---
PT HAS BEEN GIVEN PREOP MEDS. CONCENTS SIGNED AND IN THE CHART. WILL CONTINUE TO MONITOR.
--- NOTE | 2017-05-24 14:20 | NUR ---
PT RETURNED FROM OR VIA BED. PT HAS CONT BLADDER IRRIGATION. WILL CONTINUE TO MONITOR
--- NOTE | 2017-05-24 16:18 | NUR ---
LATE ENTRY: PT DID NOT RECIEVE ALL OF THE LEVAQUIN BECAUSE HE WENT TO THE OR. WILL CONTINUE TO MONITOR.
--- NOTE | 2017-05-24 19:40 | NUR ---
RESUMED CARE OF PT, LYING IN BED RESPIRATIONS EVEN AND UNLABORED ON BIPAP. FOELY TO GRAVITY, HOOKED TO IRRIGATION. RIGHT FOREARM SALINE LOCKED. CALL LIGHT IN REACH. WILL CONTINUE TO MONITOR. SEE NURSE ASSESSMENT.
[2017-05-24 20:35] VITALS: BP 100/60
--- NOTE | 2017-05-24 22:32 | NUR ---
BED BATH AND LINENS CHANGED, CALL LIGHT IN REACH. BIPAP ON. WILL CONTINUE TO MONITOR.
[2017-05-25 00:08] VITALS: BP 117/67
[2017-05-25 04:05] LABS: BASOPHILS 0.2 % (0-2); EOSINOPHILS 0.8 % (0-7); HEMATOCRIT 37.2 % (42.0-54.0); HEMOGLOBIN 11.5 g/dL (13.5-17.5); IMMATURE GRANULOCYTES 0.7 % (0-5); LYMPHOCYTES 4.6 % (15-50); MCH 29.3 pg (26.0-34.0); MCHC 30.9 g/dL (31.0-37.0); MCV 94.7 fL (80.0-100.0); MEAN PLATELET VOLUME 11.1 fL (7.4-10.4); MONOCYTES 6.2 % (2-11); NEUTROPHILS 87.5 % (40-80); PLATELET COUNT 243 10x3/uL (130-400); RBC 3.93 10x6/uL (4.20-6.10); RDW 14.2 % (11.5-14.5); WBC 19.5 10x3/uL (4.8-10.8)
[2017-05-25 04:26] LABS: ALBUMIN 2.2 g/dL (3.4-5.0); ANION GAP 7.4 mmol/L (8-16); BILIRUBIN - TOTAL 0.8 mg/dL (0.2-1.3); CALCIUM 8.9 mg/dL (8.5-10.1); CARBON DIOXIDE 38.4 mmol/L (21.0-32.0); CREATININE - SERUM 2.5 mg/dL (0.6-1.3); POTASSIUM - SERUM 3.8 mmol/L (3.5-5.1); PROTEIN - SERUM 6.2 g/dL (6.4-8.2)
[2017-05-25 04:37] VITALS: BP 109/64
--- NOTE | 2017-05-25 07:25 | NUR ---
ASSESSMENT COMPLETED. TELEMETRY SHOWS CAF WITH RARE PVCS. O2 AT 5 L/M PER NC. PT USES BI PAP WHEN SLEEPING. ARMSTRONG CATH WITH IRRIGATION ATTACHED. PT IS A DNR. CONFUSED AT TIMES. REPOSITIONED FOR COMFORT
[2017-05-25 08:00] VITALS: BP 108/63
--- NOTE | 2017-05-25 09:43 | NUR ---
NATHANIEL IRREGATION CONT. CALL LIGHT IN REACH. WILL MONITOR NEEDS.
[2017-05-25 12:00] VITALS: BP 91/46
[2017-05-25 16:00] VITALS: BP 105/75
--- NOTE | 2017-05-25 18:09 | NUR ---
LYING QUIETLY. DENIES ANY NEEDS. TELEMERTY SHOWS SR, WILL MONITOR
[2017-05-25 19:00] VITALS: BP 108/60
[2017-05-26] VITALS: BP 104/66
[2017-05-26 04:32] VITALS: BP 127/78
[2017-05-26 05:00] LABS: BASOPHILS 0.1 % (0-2); EOSINOPHILS 1.7 % (0-7); HEMATOCRIT 34.6 % (42.0-54.0); HEMOGLOBIN 10.6 g/dL (13.5-17.5); IMMATURE GRANULOCYTES 0.6 % (0-5); LYMPHOCYTES 4.3 % (15-50); MCH 29.1 pg (26.0-34.0); MCHC 30.6 g/dL (31.0-37.0); MCV 95.1 fL (80.0-100.0); MEAN PLATELET VOLUME 11.2 fL (7.4-10.4); MONOCYTES 6.9 % (2-11); NEUTROPHILS 86.4 % (40-80); PLATELET COUNT 280 10x3/uL (130-400); RBC 3.64 10x6/uL (4.20-6.10); RDW 14.3 % (11.5-14.5); WBC 15.7 10x3/uL (4.8-10.8)
[2017-05-26 05:36] LABS: BILIRUBIN - TOTAL 0.49 mg/dL (0.2-1.3); CALCIUM 8.1 mg/dL (8.5-10.1); CARBON DIOXIDE 35.8 mmol/L (21.0-32.0); CREATININE - SERUM 1.9 mg/dL (0.6-1.3); MAGNESIUM - SERUM 1.7 mg/dL (1.8-2.4); PHOSPHOROUS 4.4 mg/dL (2.5-4.9); PROTEIN - SERUM 6.2 g/dL (6.4-8.2)
[2017-05-26 05:38] LABS: ANION GAP 8.2 mmol/L (8-16)
--- NOTE | 2017-05-26 07:05 | NUR ---
RECEIVED REPORT. ASSUMED CARE OF PATIENT. NO IV ACCESS. CALL LIGHT WITHIN REACH. AT BEDSIDE. DENIES NEEDS AT THIS TIME. NO DISTRESS.
--- NOTE | 2017-05-26 08:30 | NUR ---
INCONTINENT CARE AND LINEN CHANGE PROVIDED AT THIS TIME. CALMOSEPTINE APPLIED TO BILATERAL BUTTOCK REDNESS/SHEARING. NO DISTRESS.
--- NOTE | 2017-05-26 08:36 | OP ---
PATIENT NAME: KACEY CHAWLA MEDICAL RECORD: [id number] :[birth year] LOCATION:D. D.2128 ADMISSION DATE:05/20/17 SURGEON: GERALDO NEELY MD DATE OF OPERATION: 05/24/2017 SURGEON: Geraldo Neely MD ANESTHESIA: Local anesthetic. PROCEDURES: Cystoscopy and bladder clot evacuation. Insertion of a Tamez catheter over a guidewire. PREOPERATIVE DIAGNOSES: Clot urinary retention, gross hematuria. FINDINGS: Urethral trauma from the patient pulling on his catheter. Previous TURP with a well resected prostatic urethra. No bladder tumors. SPECIMENS: None. BLOOD LOSS: Minimal. CLINICAL HISTORY: This is a 72-year-old male, who was admitted to hospital for CHF, hypoxia. He is currently being diuresed. He also is using BiPAP for sleep apnea. He has become somewhat confused and he has been pulling his BiPAP os as well as pulling on his Tamez catheter. Nurses today noted gross hematuria. His catheter has clotted off. The nurses have tried on the floor to declot it and they have not been successful. His bladder scan shows a bladder volume of 865 mL. He comes now to the OR to have the bladder declotted and continuous bladder irrigation started with a 3-way Tamez catheter. He is not allergic to any medications. We gave him Ancef 1 gram IV retail loss prevention investigator to the OR. DESCRIPTION OF PROCEDURE: The patient was placed in supine position with the head elevated because of orthopnea. He was placed into dorsal lithotomy position and prepped and draped. Uro-Jet lidocaine jelly was inserted into the urethra. A 21-Macanese cystoscope with 30-degree lens was used for visualization. Mid penile urethra shows lot of bleeding from urethral trauma. Once we got past this zone, the prostatic urethra shows signs of having been previously well resected. There was no obstruction in the prostate. There was no bleeding from the prostate. Going into the bladder, there were minimal clots still present. There was no active bleeding from the bladder. No tumors were seen in the bladder. The bladder was somewhat inflamed from Tamez catheter balloon irritation. At this point, I used a Jeanmarie syringe and irrigated out the bladder and removed some residual clots. A guidewire was then inserted into the bladder through the scope and then the scope was removed entirely. Over the guidewire, a 24-Macanese 3-way Tamez catheter was inserted. This was a [place] tip Tamez catheter. Once we were completely in the bladder, the balloon was inflated with 15 cc of sterile water. The guidewire was then entirely removed. Continuous bladder irrigation was then started. Once he starts to clear up, we can stop the bladder irrigation and cap off the inflow. TRANSINT:[id number] Voice Confirmation ID: [id number] DOCUMENT ID: [id number] OPERATIVE REPORT [id number] KACEY CHAWLA, GERALDO Sousa MD at 0836 CC: [id number] DICTATION DATE: 05/24/17 1356 SURVEILLANCE SYSTEMS ANALYST: 05/24/17 1615 ADM IN [facility] [address] [id number]
[2017-05-26 08:48] VITALS: BP 108/58
--- NOTE | 2017-05-26 11:04 | NUR ---
K+ SUPPLEMENT ADMINISTERED AT THIS TIME. NO DISTRESS. CATHETER CLAMPED TO OBTAIN URINE SPECIMEN.
--- NOTE | 2017-05-26 11:15 | NUR ---
22 GAUGE SITED TO LEFT HAND VIA KRISTIN TABARES VASCULAR ACCESS NURSE. GOOD BLOOD RETURN, EASY FLUSH. TAPED, DATED AND SECURED. NO DISTRESS. TOLERATED IV PLACEMENT WELL.
--- NOTE | 2017-05-26 11:21 | NUR ---
Rehab Note- Acute rehab Prescreen order received. Visited with the patient and is agreeable to [facility] Acute Rehab. Will continue to follow the patient at this time to see if he cooperates with therapy and how he does with mobility. Thank you for this referral! Kamila Kim RN Clinical Liaion, [facility] Rehab
[2017-05-26 12:04] VITALS: BP 119/71
[2017-05-26 12:49] LABS: APPEARANCE HAZY (CLEAR); BACTERIA FEW /hpf (NONE SEEN); BILIRUBIN NEGATIVE (NEGATIVE); COLOR YELLOW (YELLOW); EPITHELIAL CELLS 0-5 /hpf (0-5); GLUCOSE NEGATIVE (NEGATIVE); KETONE NEGATIVE (NEGATIVE); LEUKOCYTE ESTERASE 2+ (NEGATIVE); MUCUS <1+ /lpf (NONE SEEN); NITRITE NEGATIVE (NEGATIVE); PROTEIN TRACE mg/dL (NEGATIVE)
--- NOTE | 2017-05-26 14:27 | NUR ---
Nutrition Follow Up: Pt stated that his appetite is poor. He said that he would drink Glucerna if ordered. Informed pt that RD would change his diet to diabetic to aid in glucose control and pt agreed. Pt is eating 29% meal avg on a regular diet. +BM 05/25/17. Wt gain since admit. Labs reviewed - Glucose elevated. Meds noted. Will change diet to diabetic. Will order Glucerna with meals. RD following.
[2017-05-26 16:17] VITALS: BP 128/74
--- NOTE | 2017-05-26 17:45 | NUR ---
Patient Name: KACEY CHAWLA Encounter No: [id number] : 1945 Primary Insurance: MEDICARE A & B Anticipated DC Date: 05-27-2017 Planned Disposition: INPATIENT REHAB External Planned Provider: [facility] INPATIENT REHAB DCP follow-up note: CM RECEIVED ORDER FOR INPATIENT REHAB PRESCREENING. CM MET WITH PT IN ROOM. PT REPORTS HE WILL NEED REHAB PRIOR TO GOING HOME WITH HIS AND HOME HEALTH. CM DISCUSSED LOCATION AND PROVIDERS FOR INPATIENT REHAB. PT WOULD LIKE TO STAY AT [facility] FOR REHAB SERVICES. CM EXPLAINED THAT PT WILL NEED TO BE ABLE TO TOLERATE THREE HOURS OF PROGRESSIVE THERAPY PER DAY AND AT LEAST SHOW THAT HE CAN STAND AND MAYBE TAKE ONE STEP. PT ASSURES CM THAT HE WILL PARTICIPATE WITH THERAPY SESSIONS AND TRY TO SHOW HE CAN DO IT. CM DISCUSSED ALF FACILITY PROVIDERS IN THE COMMUNITY. CM PROVIDED PT WITH CHOICE LISTING. PT WILL DISCUSS THIS WITH HIS IF NEEDED AND AGAIN REPORTS WANTING TO STAY AT [facility] FOR REHAB. IMPORTANT MESSAGE FROM MEDICARE PROVIDED AND EXPLAINED. CM SPOKE TO ANIL OF INPATIENT REHAB WHO HAS MET WITH PT AND ENCOURAGED PT TO PARTICIPATE FULLY WITH THERAPY SESSIONS. CM WAITING COMPLETION OF INPATIENT REHAB PRESCREENING FOR [facility] INPATIENT REHAB. Estevan Clemente, CASE MANAGEMENT
--- NOTE | 2017-05-26 18:05 | NUR ---
RESTING IN BED WITH EYES CLOSED. EASILY AROUSED. CONSUMED 100% OF PM MEAL. SPOUSE REMAINS AT BEDSIDE. NO DISTRESS.
--- NOTE | 2017-05-26 18:43 | NUR ---
BIPAP APPLIED PATIENT IS WITH EYES CLOSED AND IS GOING HOME FOR THE NIGHT.
--- NOTE | 2017-05-26 19:34 | NUR ---
PATIENT IS ALERT AND WATCHING TV, IV IS PATENT IN LEFT HAND. O2 AT 5 LITERS VIA NC AND ARMSTRONG IS PATENT. DENIES NEEDS AT THIS TIME. CALL LIGHT IN REACH.
[2017-05-26 21:18] VITALS: BP 99/64
--- NOTE | 2017-05-27 03:44 | NUR ---
PT RESTING COMFORTABLY ON BIPAP, EYES CLOSED, RESPIRATIONS EVEN AND UNLABORED (BIPAP) AT THIS TIME. CONTINUE TO MONITOR CLOSELY. BED LOW, CALL LIGHT IN REACH, SIDE RAILS X 2, HOB 30 DEGREES.
[2017-05-27 05:04] LABS: BASOPHILS 0.3 % (0-2); EOSINOPHILS 4.8 % (0-7); HEMATOCRIT 35.1 % (42.0-54.0); HEMOGLOBIN 10.6 g/dL (13.5-17.5); IMMATURE GRANULOCYTES 0.9 % (0-5); LYMPHOCYTES 7.3 % (15-50); MCH 28.9 pg (26.0-34.0); MCHC 30.2 g/dL (31.0-37.0); MCV 95.6 fL (80.0-100.0); MEAN PLATELET VOLUME 11.2 fL (7.4-10.4); MONOCYTES 10.2 % (2-11); NEUTROPHILS 76.5 % (40-80); PLATELET COUNT 336 10x3/uL (130-400); RBC 3.67 10x6/uL (4.20-6.10); RDW 14.1 % (11.5-14.5)
[2017-05-27 05:07] LABS: WBC 10.1 10x3/uL (4.8-10.8)
[2017-05-27 05:21] LABS: BILIRUBIN - TOTAL 0.38 mg/dL (0.2-1.3); CALCIUM 8.4 mg/dL (8.5-10.1); CARBON DIOXIDE 34.4 mmol/L (21.0-32.0); MAGNESIUM - SERUM 1.7 mg/dL (1.8-2.4); PHOSPHOROUS 3.3 mg/dL (2.5-4.9); PROTEIN - SERUM 6.2 g/dL (6.4-8.2)
[2017-05-27 05:22] LABS: CREATININE - SERUM 1.4 mg/dL (0.6-1.3)
[2017-05-27 05:23] LABS: ANION GAP 10.5 mmol/L (8-16); POTASSIUM - SERUM 2.9 mmol/L (3.5-5.1)
--- NOTE | 2017-05-27 06:08 | NUR ---
PATIENT IS ALERT, SPOUSE IS AT BEDSIDE. POTASSIUM THIS MORNING WAS 2.9, 20 MEQ OF PO POTASSIUM GIVEN. DENIES ANY NEEDS OR PAIN AT THIS TIME, CALL LIGHT IN REACH.
--- NOTE | 2017-05-27 07:38 | NUR ---
AM ROUNDS COMPLETED. INTRODUCED MYSELF TO PT PRIMARY RN FOR TODAYS SHIFT. SHIFT ASSESSMENT COMPLETED. PT A&O AND DENIES ANY CURRENT PAIN OR NEEDS. CL IN REACH, BED IN LOWEST, SIDE RAILS X2. WILL CPOC.
[2017-05-27 08:15] VITALS: BP 150/73
--- NOTE | 2017-05-27 10:22 | NUR ---
SPOKE WITH PHYSICAL THERAPY ABOUT PT GETTING OOB TODAY AND TO CHAIR AND THEY ARE AWARE OF CONSULT AND STATE THEY HAVE BEEN GETTING HIM UP ON EDGE OF BED AND WILL TRY FOR CHAIR TODAY.
[2017-05-27 12:04] VITALS: BP 136/82
--- NOTE | 2017-05-27 13:25 | NUR ---
PT UP IN BEDSIDE CHAIR RESTING WITH VISITORS AT BEDSIDE. RR NONLABORED WITH NC @4L IN PLACE. ARMSTRONG IN PLACE AND DRAINING TO GRAVITY STAT LOCK DRSG CHANGED PER POLICY QWEDNESDAY. PT DENIES ANY CURRENT PAIN OR NEEDS. CL IN REACH. WILL CPOC.
[2017-05-27 16:54] VITALS: BP 103/67
--- NOTE | 2017-05-27 18:47 | NUR ---
REHAB DECISION PENDING PROGRESS WITH PHYSICAL THERAPY.
[2017-05-27 19:00] VITALS: BP 107/52
--- NOTE | 2017-05-27 20:02 | NUR ---
PATIENT IS ALERT IN BED WITH SPOUSE AT BEDSIDE, DENIES NEEDS AT THIS TIME. O2 AT 4 LITERS VIA NC, CALL LIGHT IN REACH.
[2017-05-28] VITALS: BP 97/54
--- NOTE | 2017-05-28 00:54 | NUR ---
LINE SUPERVISOR AT BEDSIDE TO OBTAIN VITALS, CALL LIGHT IN REACH. WILL CONTINUE WITH PLAN OF CARE.
[2017-05-28 04:00] VITALS: BP 92/64
[2017-05-28 05:44] LABS: ANION GAP 6.9 mmol/L (8-16); CALCIUM 8.4 mg/dL (8.5-10.1); CARBON DIOXIDE 34.9 mmol/L (21.0-32.0); CREATININE - SERUM 1.4 mg/dL (0.6-1.3); MAGNESIUM - SERUM 1.6 mg/dL (1.8-2.4); PHOSPHOROUS 4.1 mg/dL (2.5-4.9)
[2017-05-28 05:53] LABS: POTASSIUM - SERUM 3.8 mmol/L (3.5-5.1)
--- NOTE | 2017-05-28 07:09 | NUR ---
AM ROUNDS COMPLETED. INTRODUCED MYSELF TO PT PRIMARY RN FOR TODAYS SHIFT. PT A&O RESTING QUIETLY IN BED. SHIFT ASSESSMENT COMPLETED. PT DENIES ANY CURRENT NEEDS. CL IN REACH, BED IN LOWEST, SIDE RAILS X2 AND BED ALARM ON. WILL CPOC.
[2017-05-28 08:00] VITALS: BP 116/67
--- NOTE | 2017-05-28 09:40 | NUR ---
SPOKE WITH AYSE FROM [facility]. SHE STATED THEY WOULD ACCEPT THE PATIENT TODAY, THAT SHE STILL NEEDS TO FINISH THE SCREENING PAPERWORK. SHE WILL LET US KNOW WHEN DONE AND WHAT ROOM THE PATIENT CAN GO TO. I WILL TALK WITH DR LOPEZ ABOUT DISCHARGE ORDERS.
[2017-05-28] MEDS ORDERED: COZAAR25 MG PO (10:35)
[2017-05-28] MEDS ORDERED: TENORMIN50 MG PO (10:35)
[2017-05-28] MEDS ORDERED: Levaquin PO (10:36)
[2017-05-28 12:00] VITALS: BP 116/67
--- NOTE | 2017-05-28 13:01 | NUR ---
PT SITTING UP IN BEDSIDE CHAIR RESTING COMFORTABLY. PT IS ACCEPTED INTO IP REHAB AND IS AWAITING A ROOM NUMBER. NO CURRENT NEEDS. CL IN REACH. WILL CPOC.
--- NOTE | 2017-05-28 14:16 | NUR ---
REPORT CALLED TO REHAB NURSE JELENA. PT GOING TO ROOM 1112A. PT VERBALIZED UNDERSTANDING AND DISCHARGE PAPERS SIGNED. PT WILL BE TRANSFERRED DOWN SHORTLY. NO FURTHER NEEDS AT THIS TIME.
--- NOTE | 2017-05-28 15:32 | NUR ---
BELONGINGS COLLECTED AND PT BEING WHEELED DOWN AT THIS TIME. NO FURTHER NEEDS.
--- NOTE | 2017-05-29 11:28 | EC ---
PATIENT:KACEY CHAWLA DATE OF SERVICE: 05/20/17 SEX: M MEDICAL RECORD: [id number] DATE OF : 43 LOCATION:D. D.212 AGE OF PATIENT: 72 ADMISSION DATE: 05/20/17 REFERRING PHYSICIAN: INTERPRETING PHYSICIAN: MARINE JADE MD ECHOCARDIOGRAM REPORT ECHO CHARGES 4 ECHO COMPLETE CLINICAL DIAGNOSIS: CHF,ASSESS EF ECHOCARDIOGRAPHIC MEASUREMENTS (adult normal given) AC root (d.<3.7cm) 3.4 cm LV Septum d (<1.2 cm> 1.5 cm Valve Excursion 1.5 cm LV Septum (systole) 1.7 cm Left Atria (s.<4.0cm> 4.6 cm LVPW d(<1.2cm) 1.5 cm RV (d.<2.3cm) 6.6 cm LVPW (sytole) 2.1 cm LV diastole(<5.6CM) 5.1 cm MV E-F(>70mm/sec) cm LV systole 2.3 cm LVOT Diameter 1.3 cm MV exc.(>10mm) 1.7 cm Est.ejection fraction (50-75%) % Pericardial Effusion N DOPPLER: LVIT cm/sec A 60.0 cm/sec E 31.0 cm/sec LA cm/sec RVSP 55 mmHg LVOT 90 cm/sec AOP1/2T m/s Asc. Ao 164 cm/sec RVOT 81 cm/sec RA cm/sec PA 136 cm/sec AV Gradient Peak 10.78mmHg AV Mean 6.09 mmHg AV Area 1.0 cm MV Gradient Peak 5.52 mmHg MV Mean 2.13 mmHg MV Area cm COMMENTS: Integrated Logistics Programs Director: Shannan SUAREZ Casing Tester: 4 Dr. Jade TAPE# PACS DATE OF SERVICE: 05/27/2017 PROCEDURE: Transthoracic echocardiogram. FINDINGS: 1. Left ventricle shows left ventricular hypertrophy. The patient has atrial fibrillation so inflow characteristics are not mentioned. 2. The overall ejection fraction and appropriate R-R interval is normal to hyperdynamic with an ejection fraction of 55% to 60%. 3. The aortic valve is thickened; however, there is no elevation upon sampling ECHOCARDIOGRAM REPORT [id number] KACEY CHAWLA in the peak pressure gradient. It does not appear that the patient has any evidence of significant aortic stenosis on this study. 4. The left atrium is moderately dilated at 4.6 cm. 5. The tricuspid valve shows moderate tricuspid regurgitation with an RVSP of 50-55 mmHg. 6. Pulmonic valve is normal. 7. The right atrium is severely dilated. 8. The right ventricle itself is significantly dilated with a dimension of 3.5 cm. The patient has right ventricular hypertrophy with preserved right ventricular function. 9. The IVC was not well visualized. CONCLUSIONS: This is a patient with evidence of hypertensive heart disease without major valvular abnormalities and evidence of mild to moderate pulmonary hypertension with compensatory changes in the right-sided structures. TRANSINT:[id number] Voice Confirmation ID: [id number] DOCUMENT ID: [id number] MARINE JADE MD at 1128 CC: [id number] DICTATION DATE: 05/27/17908 BONE DENSITY TECHNICIAN: 05/27/17 1055 DIS IN 05/28/17 [facility] [address] [place] [address]
[2017-05-29] MEDS ORDERED: LEVAQUIN500 MG PO (14:50)
== END 2017-05-28 15:33 | DRG 291 ==
LOC: D.ER 20:02 → D.M2 22:14
PROVIDERS: Emergency Medicine; Family Medicine; Internal Medicine Nephrology; ADMIT Family Medicine
PROC: 5A09557 Assistance with Respiratory Ventilation, Greater than 96 Consecutive Hours, Continuous Positive Airway Pressure (ICD-10-PCS; 2017-05-20)
PROC: 0T9B70Z Drainage of Bladder with Drainage Device, Via Natural or Artificial Opening (ICD-10-PCS; principal; 2017-05-21)
PROC: 0TCB8ZZ Extirpation of Matter from Bladder, Via Natural or Artificial Opening Endoscopic (ICD-10-PCS; 2017-05-24)
PROC: 0T9B70Z Drainage of Bladder with Drainage Device, Via Natural or Artificial Opening (ICD-10-PCS; 2017-05-24)
DX: I11.0 Hypertensive heart disease with heart failure (principal); J96.21 Acute and chronic respiratory failure with hypoxia; J96.22 Acute and chronic respiratory failure with hypercapnia; J18.9 Pneumonia, unspecified organism; E66.2 Morbid (severe) obesity with alveolar hypoventilation; E87.2 Acidosis; N39.0 Urinary tract infection, site not specified; N17.9 Acute kidney failure, unspecified; I50.23 Acute on chronic systolic (congestive) heart failure; Z91.19 Patient's noncompliance with other medical treatment and regimen; Z68.37 Body mass index [BMI] 37.0-37.9, adult; E78.5 Hyperlipidemia, unspecified; E11.9 Type 2 diabetes mellitus without complications; K21.9 Gastro-esophageal reflux disease without esophagitis; I25.10 Atherosclerotic heart disease of native coronary artery without angina pectoris; I48.2 Chronic atrial fibrillation; I27.2 Other secondary pulmonary hypertension; N32.89 Other specified disorders of bladder; I42.9 Cardiomyopathy, unspecified; E87.6 Hypokalemia; E83.42 Hypomagnesemia; K59.00 Constipation, unspecified; I08.2 Rheumatic disorders of both aortic and tricuspid valves; G25.81 Restless legs syndrome; D64.9 Anemia, unspecified; Z95.5 Presence of coronary angioplasty implant and graft; Z72.0 Tobacco use

== ENCOUNTER 2017-05-28 12:31 | Inpatient (IN) | payer MEDICARE ==
[~2017-05-28 12:31] MED LIST changes: +COZAAR25 MG PO; +GLUCOPHAGE1000 MG PO; +GLYBURIDE2.5 MG PO; +Levaquin PO; +NITROSTAT0.4 MG SL; +ROPINIROLE HCL2 MG PO; +TENORMIN50 MG PO; +ZOCOR40 MG PO
--- NOTE | 2017-05-28 16:00 | NUR ---
RECIEVED ON UNIT FROM ACUTE CARE/.O2 ON AT 4L/NC.ORIENTED TO ROOM AND SURROUNDINGS.CL IN REACH.PLACED IN BED/MIKE LIFT.
--- NOTE | 2017-05-28 19:50 | NUR ---
PT. IN BED WITH HOB UP FOR COMFORT. EYES CLOSED AND RESP. EVEN. PT. AWAKENS EASILY FOR ASSESSMENT. NO VOICED NEEDS AT THIS TIME. ARMSTRONG TO BSD AND DRAINING CLEAR YELLOW FLUID. CALL LIGHT WITHIN REACH.
[2017-05-28 19:55] VITALS: BP 92/51; BMI 42.9
[2017-05-28 20:00] VITALS: BP 113/75
--- NOTE | 2017-05-28 23:16 | NUR ---
PT. IN BED WITH HOB AND FOB ELEVATED. EYES CLOSED AND RESP. EVEN. BIPAP EQUIPMENT IN PLACE WITHOUT ALARMS. ARMSTRONG TO BSD WITHOUT PROBLEMS. CALL LIGHT WITHIN REACH.
--- NOTE | 2017-05-29 03:02 | NUR ---
PT. IN BED WITH HOB SLIGHTLY ELEVATED FOR COMFORT. FOB ELEVATED TO HELP W/EDEMA. ARMSTRONG TO BSD WITHOUT PROBLEMS. PT. WEARING HIS BIPAP AND HE HAS ATTEMPTED TO REMOVE IT TWICE SO FAR THIS SHIFT, BUT WAS INSTRUCTED HE HAD TO WEAR IT UNTIL THE MORNING. PT. ACKNOWLEDGED UNDERSTANDING. CALL LIGHT WITHIN REACH.
[2017-05-29 06:49] LABS: BASOPHILS 0.2 % (0-2); EOSINOPHILS 5.8 % (0-7); HEMATOCRIT 35.2 % (42.0-54.0); HEMOGLOBIN 10.5 g/dL (13.5-17.5); LYMPHOCYTES 12.8 % (15-50); MCH 28.8 pg (26.0-34.0); MCHC 29.8 g/dL (31.0-37.0); MCV 96.4 fL (80.0-100.0); MEAN PLATELET VOLUME 10.7 fL (7.4-10.4); MONOCYTES 9.7 % (2-11); NEUTROPHILS 70.5 % (40-80); PLATELET COUNT 366 10x3/uL (130-400); RBC 3.65 10x6/uL (4.20-6.10); WBC 8.3 10x3/uL (4.8-10.8)
[2017-05-29 08:43] VITALS: BP 103/47
--- NOTE | 2017-05-29 10:05 | NUR ---
PT AM MEDS ADMINISTERED. PT DENIES NEEDS. WCTM.
[2017-05-29 11:12] VITALS: BMI 42.8
--- NOTE | 2017-05-29 12:35 | NUR ---
PT FIRST STEP AIR MATTRESS ORDERED AND PLACED ON BED.
[2017-05-29] MEDS ORDERED: LEVAQUIN500 MG PO (14:50)
--- NOTE | 2017-05-29 15:51 | NUR ---
Wound care consult; Noted redness and excoriation to bilateral buttocks. There are 2 stage 2 pressure injuries on the right, both measuring 1cm x 1cm and a stage 2 on the left buttock, also measuring 1cm x 1cm. Pt is incontinent of bowels and bladder. F/C is in place. He requires a keaton lift in order to get oob but is able to turn and reposition himself while in bed. He is being encouraged to do so. Calmoseptine cream is being applied to excoriated areas and to wounds daily and as needed if soiled. He has been placed on an air overlay mattress. Wound care will continue monitoring.
--- NOTE | 2017-05-29 17:05 | NUR ---
PT RESTING, EYES CLOSED. BED LOW. CL IN REACH.
[2017-05-29 19:00] VITALS: BP 104/60
--- NOTE | 2017-05-29 19:15 | NUR ---
PT IN BED WITH HOB UP FOR COMFORT. WATCHING TV. DNR. O2 @ 4L VIA NC. BIPAP AT NIGHT. LEFT HAND SALINE LOC. ARMSTRONG CATH. ELECTROLYTE PROTOCOL. TOTAL. INCONTINENT OF BOWEL. 1ST STEP AIR MATTRESS. FREQUENT COUGH. EXCORIATION ON BUTTOCKS. BED IN LOWEST POSITION AND CALL LIGHT WITHIN REACH.
--- NOTE | 2017-05-29 20:41 | NUR ---
LEFT HAND SALINE LOC FLUSHES EASILY.
--- NOTE | 2017-05-29 23:10 | NUR ---
PT IN BED WITH HOB UP FOR COMOFRT. EYES CLOSED. CHEST RISING AND FALLING. BED IN LOWEST POSITION AND CALL LIGHT WITHIN REACH.
--- NOTE | 2017-05-30 00:05 | NUR ---
INCONTINET BM. CHANGED PT. ARMSTRONG CATH CARE GIVEN. JOAN APPLIED TO BUTTOCKS.
--- NOTE | 2017-05-30 03:00 | NUR ---
PT LYING IN BED. EYES CLOSED. CHEST RISING AND FALLING. BED ALARM ON. BED IN LOWEST POSITION AND CALL LIGHT WITHIN REACH.
--- NOTE | 2017-05-30 05:29 | NUR ---
RESTING IN BED WITH EYES CLOSED. NO S/S OF DISTRESS OBSERVED. CPAP IN PLACE. RESP. EVEN AND UNLABORED. LEFT HAND SALINE LOCK. PATENT WITH DRESSING CLEAN, DRY AND INTACT.
--- NOTE | 2017-05-30 05:34 | NUR ---
REMAINS ON 4 LITERS OF O2.
[2017-05-30 09:00] VITALS: BP 137/83
--- NOTE | 2017-05-30 09:40 | NUR ---
AFTER 4 LOOSE WATERY BM, PT GIVEN PRN IMODIUM ALONG WITH AM MEDICATIONS. WCTM.
--- NOTE | 2017-05-30 12:35 | NUR ---
PT EATING LUNCH, DENIES NEEDS. WCTM.
--- NOTE | 2017-05-30 18:45 | NUR ---
PT SITTING UP IN WC WAITING FOR THERAPY TO SHOWER. WCTM.
--- NOTE | 2017-05-30 19:20 | NUR ---
PT RECEIVED SHOWER BY OT. HELPED OT GET PT BACK INTO BED. APPLIED JOAN TO BUTTOCKS.
[2017-05-30 20:00] VITALS: BP 115/79
--- NOTE | 2017-05-30 20:00 | NUR ---
PT IN BED WITH HOB UP FOR COMFORT. WATCHING TV. DNR. O2 @ 4L VIA NC. BIPAP AT NIGHT. ARMSTRONG CATH. ELECTROLYTE PROTOCOL. TOTAL. INCONTINENT OF BOWEL. 1ST STEP AIR MATTRESS. EXCORIATION ON BUTTOCKS, CALMOSEPTINE. BED IN LOWEST POSITION AND CALL LIGHT WITHIN REACH.
--- NOTE | 2017-05-30 22:30 | NUR ---
ASKED PT IF HE WAS READY TO PUT ON BIPAP. PT STATED HE DID NOT WANT TO PUT IT ON AND THAT HE WANTED TO WAIT LONGER.
--- NOTE | 2017-05-31 01:36 | NUR ---
RESTING IN BED WITH EYES CLOSED. NO S/S OF DISTRESS OBSERVED. O2@ 4 LITERS PER N/C. ARMSTRONG CATH PATENT AND DRAINING CLEAR YELLOW URINE TO BSD SYSTEM. CALL LIGHT AND OVERBED TABLE IN REACH.
--- NOTE | 2017-05-31 03:35 | NUR ---
PT REFUSING TO WEAR BIPAP. REMOVED BIPAP AND PUT IN O2 VIA NC.
--- NOTE | 2017-05-31 09:15 | NUR ---
PT AM MEDS ADMINISTERED. PT DENIES NEEDS. WCTM.
--- NOTE | 2017-05-31 11:00 | NUR ---
PT HAD INCONT BM. PT CLEANED, LINEN AND GOWN CHANGED. JOAN APPLIED TO BUTTOCK. WCTM.
[2017-05-31 11:55] VITALS: BP 108/72
--- NOTE | 2017-05-31 18:28 | NUR ---
PT RESTING IN BED, RAUL NEEDS. WCTM.
[2017-05-31 20:00] VITALS: BP 93/59
--- NOTE | 2017-05-31 20:00 | NUR ---
PT IN BED WITH HOB UP FOR COMFORT. RESTING QUIETLY. PT'S CODE STATUS IS DNR. O2 @ 4L VIA NC. BIPAP AT NIGHT. ARMSTRONG CATH. ELECTROLYTE PROTOCOL. TOTAL ASSIST. INCONTINENT OF BOWEL. 1ST STEP AIR MATTRESS. EXCORIATION ON BUTTOCKS, CALMOSEPTINE. BED IN LOWEST POSITION AND CALL LIGHT WITHIN REACH.
--- NOTE | 2017-05-31 23:16 | NUR ---
PT REFUSING TO WEAR BIPAP. FAN MOTA TOOK PT OFF OF BIPAP.
--- NOTE | 2017-06-01 00:11 | NUR ---
PT STATED, "WHAT TIMES IS IT." I REPLIED, "MIDNIGHT." PT STATED, "I NEVER GOT SUPPER AND I FEEL LIKE I NEED TO THROW UP." REASSURED PT HE HAD SUPPER EARLIER AND GAVE HIM A BLUE BAG AND [place] AND TOLD HIM THAT WILL HELP SETTLE HIS STOMACH. AND READJUSTED PT IN BED.
--- NOTE | 2017-06-01 03:31 | NUR ---
RESTING IN BED WITH EYES CLOSED. REFUSED BIPAP THIS SHIFT. ATTEMPTS TO REEDUCATE ON SIDE WEFFECTS OF NOT WEARING IT BY FAN (OBGYN NURSE). UNSUCESSFUL. WEARING O2@ 4 LITERS PER N/C AT THIS TIME. YELLING OUT AT TIMES. WHEN ENTERING THE ROOM APPEARS TO BE SNORING. NO S/S OF PAIN OR DISCOMFORT OBSERVED. CALL LIGHT AND OVERBED TABLE IN REACH.
[2017-06-01 04:57] VITALS: BP 98/67
--- NOTE | 2017-06-01 04:59 | NUR ---
PT STATED, "I FEEL DIZZY." CHECKED PT VITALS. BP IS 98/67. HR IS 95. 02 STATS WAS 46%, SWITCHED TO ANOTHER FINGER AND IT READ 62% HTNE WENT UP TO 98%. PAGED FLORENTIN BRADLEY AND SHE PUT PT BACK ON BIPAP. PT STATED, "I HATE WEARING THAT THING." FLORENTIN RT REORIENTED TO PUT WHY HE NEEDS TO WEAR THE BIPAP.
[2017-06-01 05:35] LABS: BASOPHILS 0.3 % (0-2); EOSINOPHILS 3.8 % (0-7); HEMATOCRIT 36.7 % (42.0-54.0); HEMOGLOBIN 10.8 g/dL (13.5-17.5); IMMATURE GRANULOCYTES 1.1 % (0-5); LYMPHOCYTES 6.8 % (15-50); MCH 29.1 pg (26.0-34.0); MCHC 29.4 g/dL (31.0-37.0); MCV 98.9 fL (80.0-100.0); MEAN PLATELET VOLUME 10.2 fL (7.4-10.4); MONOCYTES 6.6 % (2-11); NEUTROPHILS 81.4 % (40-80); PLATELET COUNT 373 10x3/uL (130-400); RBC 3.71 10x6/uL (4.20-6.10); RDW 13.9 % (11.5-14.5); WBC 7.9 10x3/uL (4.8-10.8)
--- NOTE | 2017-06-01 06:13 | NUR ---
PT ONLY HAD 200ML OUTPUT IN ARMSTRONG BAG. BLADDER SCAN DONE AND IT SHOWED 73ML. ARMSTRONG CATH CARE GIVEN.
[2017-06-01 08:13] VITALS: BP 141/82
--- NOTE | 2017-06-01 09:30 | NUR ---
PT AM MEDS ADMINISTERED. PT DENIES NEEDS AT THIS TIME. BED LOW. CL IN REACH.
--- NOTE | 2017-06-01 19:30 | NUR ---
PT. LAYING ON FIRST STEP AIR MATTRESS WITH HOB UP FOR COMFORT. ASSESSMENT COMPLETED. NO VOICED NEEDS. CALL LIGHT WITHIN REACH.
[2017-06-01 22:32] VITALS: BP 122/88
--- NOTE | 2017-06-01 23:15 | NUR ---
TWICE SO FAR THIS SHIFT STAFF HAS HAD TO REPOSITION PT. SO THAT HE DOESN'T SLIDE/FALL OOB. PT. NOW IN BED WITH HOB/FOB ELEVATED, EYES CLOSED, RESP. EVEN. BI-PAP EQUIPMENT IN PLACE. HAVE HAD TO INSTRUCT PT. TWICE SO FAR THAT BI-PAP WILL NEED TO STAY ON ALL NIGHT IT IS AN ORDERED PIECE OF EQUIPMENT FROM THE MD. CALL LIGHT WITHIN REACH.
--- NOTE | 2017-06-02 03:03 | NUR ---
PT. IN BED ON FIRST STEP MATTRESS. EYES CLOSED AND RESP. EVEN. PT. HAS PULLED HIS BI-PAP MASK OFF AND I REPLACED IT AND PT. DIDN'T OPEN HIS EYES OR SPEAK TO ME. CALL LIGHT REMAINS WITHIN REACH.
--- NOTE | 2017-06-02 08:04 | NUR ---
LAKISHA ASST TO PULL PT UP IN BED SO HE CAN EAT BREAKFAST. MAX ASST WITH PROPING UP IN BED. HAS AIR MATTRESS ON BED.
[2017-06-02 09:49] VITALS: BP 133/58
--- NOTE | 2017-06-02 12:14 | NUR ---
SITTING UP IN W/C IN ROOM FOR LUNCH. FEEDS SELF. F/C DRAINING CLOUDY URINE.
--- NOTE | 2017-06-02 13:28 | NUR ---
Nutrition Follow Up: Pt is eating 86% meal avg on a diabetic diet. +BM 06/02/17. Noted pt with a stage II ulcer to buttocks. Meds and labs reviewed. Rec continue current diet. RD following.
--- NOTE | 2017-06-02 18:43 | NUR ---
RESTING QUIETLY IN BED. REPOSITIONED BUT PT WILL NOT ROLL OFF BUTTOCKS. ENCOURAGED HIM TO LAY ON SIDE OR EVEN LEAN [address] FOR A WHILE TO RELIEVE PRESSURE ON BUTTOCKS. HE DECLINED. BED IN LOWEST POSITION. CALL LIGHT IN REACH
--- NOTE | 2017-06-02 19:40 | NUR ---
PT. IN BED WITH HOB UP FOR COMFORT AND PT. IS ON A FIRST STEP MATTRESS. POSITIONED PT. ONTO LEFT SIDE AND REPOSITIONED ARMSTRONG CATHETER TUBING IT WAS UNDER PT'S RT. LEG. STAT LOCK WAS NOT ATTACHED TO CATHETER TUBING EITHER SO THIS WAS ATTACHED AND ARMSTRONG DRAIN TUBING PLACED ON OTHER SIDE OF BED FOR VISUALIZATION. ASSESSMENT COMPLETED. CALMOSEPTINE APPLIED TO BUTTOCK WITH ASSISTANCE FROM DAVE OROZCO. PT. POSITIONED TO COMFORT ON LEFT SIDE AND HIS CALL LIGHT WITHIN REACH.
[2017-06-02 22:04] VITALS: BP 90/59
--- NOTE | 2017-06-02 23:01 | NUR ---
SINCE BIPAP HAS BEEN PLACED ON PT. HE HAS PULLED THE TUBING OFF 3 TIMES SO FAR. HAVE EXPLAINED TO PT. THAT HE MUST LEAVE THE EQUIPMENT ALONE AND WEAR HIS BI-PAP UNTIL THE MORNING. PT. ACKNOWLEDGES UNDERSTANDING AND EQUIPMENT READJUSTED TO FIT FACE. CALL LIGHT WITHIN REACH.
--- NOTE | 2017-06-03 02:04 | NUR ---
PT'S BI-PAP EQUIPMENT KEEPS ALARMING AND PT. IS NOT BOTHERING WITH THE EQUIPMENT. KIANNA Kaplan AND Eusebio SOMERS RESPONDED AND SAID THEY WERE BUSY AT THIS TIME AND TO TAKE THE BI-PAP OFF AND PLACE PT. ON HIS O2. DID INSTRUCTED AND REMOVED BI-PAP AND PLACED PT. ON HIS 3L/MIN N/C O2 AND RAISED HOB TO 35 DEGREES. PT. THANKFUL THAT BI-PAP IS OFF AND HIS O2 IS BACK ON. CALL LIGHT WITHIN REACH.
--- NOTE | 2017-06-03 02:16 | NUR ---
R.T. CAME AND CHECKED BI-PAP EQUIPMENT AND PLACED IT BACK ON PT. PT. HAD BEEN "STACK" BREATHING WHICH WAS SETTING OFF AN INTERNAL ALARM.
--- NOTE | 2017-06-03 03:00 | NUR ---
PT. IN BED WITH HOB UP AND BI-PAP EQUIPMENT IN PLACE. SINCE R.T. CAME AND PLACED THERE HAVE BEEN NO MORE ALARMS. PT'S EYES ARE CLOSED AND RESP. EVEN. CALL LIGHT WITHIN REACH. NATHANIEL TO BSC WITHOUT PROBLEMS.
[2017-06-03 06:46] LABS: BASOPHILS 0.1 % (0-2); EOSINOPHILS 3.4 % (0-7); HEMATOCRIT 35.3 % (42.0-54.0); HEMOGLOBIN 10.5 g/dL (13.5-17.5); IMMATURE GRANULOCYTES 0.7 % (0-5); LYMPHOCYTES 9.4 % (15-50); MCH 28.8 pg (26.0-34.0); MCHC 29.7 g/dL (31.0-37.0); MEAN PLATELET VOLUME 10.6 fL (7.4-10.4); MONOCYTES 7.9 % (2-11); NEUTROPHILS 78.5 % (40-80); PLATELET COUNT 395 10x3/uL (130-400); RBC 3.64 10x6/uL (4.20-6.10); RDW 13.9 % (11.5-14.5); WBC 6.7 10x3/uL (4.8-10.8)
[2017-06-03 07:08] LABS: ANION GAP 10.9 mmol/L (8-16); CALCIUM 8.7 mg/dL (8.5-10.1); CARBON DIOXIDE 31.4 mmol/L (21.0-32.0); CREATININE - SERUM 1.5 mg/dL (0.6-1.3); POTASSIUM - SERUM 5.3 mmol/L (3.5-5.1)
--- NOTE | 2017-06-03 07:10 | NUR ---
LAB CALLED WITH GLUCOSE LEVEL OF 21. THIS NURSE RETOOK LEVEL AT 23. IV INSERTED IN LEFT HAND. DEXTROSE 50CC GIVEN IV PUSH. GLUCOSE LEVEL AT 0755 UP TO 145. PATIENT EATTING BREAKFAST.
[2017-06-03 08:00] VITALS: BP 123/79
--- NOTE | 2017-06-03 08:10 | NUR ---
GLUCOSE LEVE AT 105. WILL CONTINUE TO MONITOR
--- NOTE | 2017-06-03 08:32 | NUR ---
GLUCOLSE LEVEL 206
--- NOTE | 2017-06-03 08:48 | NUR ---
RESTING QUIETLY IN BED. DENIES NEEDS OR C/O. CALL LIGHT IN REACH. BED IN LOWEST POSITION.
--- NOTE | 2017-06-03 09:26 | NUR ---
GLUCOPHAGE HELD GLUCOSE LEVEL 99
--- NOTE | 2017-06-03 10:35 | NUR ---
PATIENT AND FAMILY REFUSED FOR PATIENT TO GO TO PHYSICAL THERAPY TODAY. FAMILY WANT TO ATTEND CARE PLAN MEETING. CHARGE NURSE NOTIFIED.
--- NOTE | 2017-06-03 13:07 | NUR ---
DR WILKS ORDERED CELEXA FOR PT DEPRESSION PER FAMILY REQUEST. DR WILKS NOTIFIED OF POTENTIAL SIDE EFFECTS OF TWO DIFFERENT MED REACTIONS WITH CELEXA. HE STATED TO GO AHEAD AND ORDER IT ANYWAY.
--- NOTE | 2017-06-03 15:25 | NUR ---
PATIENT SLIDING OFF OF FIRST STEP MATTRESS. SIDE RAILS UP X 3. REPOSITIONED MAX ASST OF TWO.
--- NOTE | 2017-06-03 16:47 | NUR ---
PATIENT ADMITTED TO REHAB FROM ACUTE FLOOR. HIS PCP IS DR. LOPEZ. HE HAS O2, WALKER AND WHEELCHAIR AT HOME. PLANS ARE FOR PATIENT TO RETURN HOME WITH FAMILY. SENT ORDER FOR HOSPITAL BED AND MIKE LIFT FOR HOME TO [place]. WILL CONTINUE TO FOLLOW WITH PATIENT.
--- NOTE | 2017-06-03 19:25 | NUR ---
PT. IN BED WITH HOB UP AND REMAINS ON THE FIRST STEP MATTRESS. ASSESSMENT COMPLETED. NO VOICED NEEDS AT THIS TIME AND HE HAS HIS PEANUT BUTTER AND CRACKERS ON THE TABLE IN FRONT OF HIM WITH HIS MT. [place] TO DRINK. CALL LIGHT WITHIN REACH. NATHANIEL TO BSD WITHOUT PROBLEMS.
[2017-06-03 19:45] VITALS: BP 123/75
--- NOTE | 2017-06-03 21:00 | NUR ---
FSBS 52. GAVE PT. HIS MT. DEW, CRACKERS W/PEANUT BUTTER, THAT HAD BEEN SITTING ON HIS TABLE SINCE AROUND 5PM, AND OJ W/SUGAR.
--- NOTE | 2017-06-03 21:20 | NUR ---
RECHECK OF BS WAS 115. PT. WAS INSTRUCTED TO CONTINUE EATING THE PAULINE CRACKERS W/PEANUT BUTTER AND HIS MT. DEW AND THEN I WOULD GIVE HIM SOME ICE CREAM IF HE WANTED, AND HE SAID YES. CALL LIGHT LEFT WITHIN REACH.
--- NOTE | 2017-06-03 23:12 | NUR ---
PT. IN BED WITH HOB UP FOR COMFORT WITH O2 ON AT 3L/MIN VIA N/C WITHOUT ANY S/S DISTRESS. PT. CONTINUES TO BE ON FIRST STEP MATTRESS. PT. DENIES ANY NEEDS AT THIS TIME AND HIS CALL LIGHT REMAINS WITHIN REACH. ARMSTRONG TO BSD WITHOUT PROBLEMS.
--- NOTE | 2017-06-04 00:35 | NUR ---
PT. YELLING OUT, "HELP." UPON ENTERING ROOM I ASKED PT. WHAT HE NEEDED. PT. STATED HE WAS LONELY. ASSISTED PT. WITH TURNING ON TV AND FINDING HIM SOMETHING TO WATCH AND LEFT THE CALL LIGHT UNDER HIS EAR SO HE COULD HEAR. ASKED PT. IF HE WAS HUNGRY AND HE SAID, "YES." ASKED IF HE WOULD LIKE SOME PUDDING AND HE SAID, "YES." FOUND VANILLA PUDDING AND HE ATE IT.
--- NOTE | 2017-06-04 03:05 | NUR ---
PT. IN BED WITH HOB UP FOR COMFORT. O2 ON AT 4L/MIN VIA N/C WITHOUT ANY S/S DISTRESS. EYES CLOSED AND RESP. EVEN. PT. CONTNUES TO YELL OUT EVERY ONCE IN A WHILE, "OW", AND PT. HAD TOLD ME EARLIER THAT HE DOESN'T KNOW WHEN HE'S DOING IT. ARMSTRONG TO BSD WITHOUT PROBLEM. CALL LIGHT WITHIN REACH.
--- NOTE | 2017-06-04 07:32 | NUR ---
PATIENT ALERT. ON A FIRST STEP MATTRESS. OXYGEN ON AT 3L PER N/C. BED ALARM ON. CALL LIGHT WITHIN REACH. VOICES NO NEEDS AT THIS TIME.
[2017-06-04 07:52] VITALS: BP 109/65
[2017-06-04] MEDS ORDERED: CELEXA20 MG PO (08:47)
--- NOTE | 2017-06-04 08:48 | RHP ---
PATIENT: KACEY CHAWLA MEDICAL RECORD: [id number] ACCOUNT: [id number] LOCATION:[facility] Jesus1111 : 43 ADMISSION DATE: 05/28/17 REHABILITATION HISTORY AND PHYSICAL EXAMINATION POST ADMISSION PHYSICIAN EXAMINATION DATE OF ADMISSION: To the rehab is 05/28/2017. 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 HISTORY OF PRESENT ILLNESS: The patient is an elderly gentleman who presents secondary to CHF myopathy. He is a 72-year-old gentleman brought to the Emergency Room when not being able to breath. ABG showed a pH of 7.3, but his CO2 was 73. He was put on BiPAP and became more alert. He was admitted to the acute hospital after failing home therapy. Recently, he had been on remission. He had been refusing care and was discharged home, and was stable for outpatient therapy. He has since decided that his home therapy was not working and he is now agreeable to treatment. He has got a history of obstructive sleep apnea, chronic AFib, cardiomyopathy, diastolic congestive heart failure. He was shown to be in chronic respiratory acidosis requiring BiPAP. He has been in acute acidosis on top of his chronic acidosis. His weights and volume status have been difficult to assess. He had been receiving Diamox now changed to p.o. medications, DuoNeb inhaler. He has a marked prerenal azotemia and likely has effective arterial blood volume that is reduced while his body is seemingly to be in edema. He has evidence of possible right heart failure as a consequence of his left heart failure. He had been followed by nephrology due to a history of nephrectomy and his elevated renal functions. He has been seen and underwent a cystoscopy secondary to gross hematuria and a blood clot, and Tamez catheter was placed with a guidewire. He has been participating with therapy. He lives at home with his . He was moderately independent with a rolling walker and was independent with ADLs. He is O2-dependent at 2 liters via nasal cannula normally, but he is up to 5 liters at this time. He is using BiPAP at bedtime and during naps. He has noted proximal weakness with difficulty with bed mobility, difficulty rising from the bed to the chair and morbid obesity. He is currently max assist to total assist with mobility, set up for max assist for ADLs. He would like to return home with his at his prior level of functioning or better. COMORBIDITIES: In this patient include [id number]-[id number] hypoxic hypercapnic respiratory failure, pulmonary edema, community-acquired pneumonia, leukocytosis, atrial fib, acute kidney injury, chronic kidney disease, diabetes, hypertension, coronary artery disease, gout, restless leg syndrome, debility, anemia, hypokalemia, shortness of breath, chronic back pain, edema, deconditioning and obesity. PAST MEDICAL HISTORY: Significant for morbid obesity, obstructive sleep apnea, coronary artery disease, pulmonary hypertension, history of AFib, diabetes, hyperlipidemia, weakness, dizziness, peripheral vascular disease, arrhythmias, hypoxia, home O2 dependence and constipation. PAST SURGICAL HISTORY: Includes an EGD for GI bleeding in the past, umbilical hernia repair, nephrectomy and angioplasty. ALLERGIES: No known drug allergies. HISTORY AND PHYSICAL [id number] KACEY CHAWLA CURRENT MEDICATIONS: Include simvastatin 40 mg daily, vitamin E 400 units daily, Protonix 40 mg daily, Cozaar 25 mg daily, Levaquin 500 mg daily, Zetia 10 mg daily, Tenormin 50 mg daily. He is on an electrolyte protocol at this time. He is on nitroglycerin p.r.n. chest pain, metformin 1000 mg b.i.d. with meals, Ellijay 1 tab q.6 hours p.r.n. pain, hydrochlorothiazide 12.5 mg b.i.d., DiaBeta 2.5 mg b.i.d. and allopurinol 100 mg b.i.d. HABITS: No current alcohol or tobacco use. FAMILY HISTORY: Noncontributory. SOCIAL HISTORY: The patient once again wants to return home with his . REVIEW OF SYSTEMS: GENERAL: Does complain of weakness and fatigue. HEENT: Denies cold, cough or congestion. CARDIOVASCULAR: Denies any chest pain. LUNGS: Does complain of shortness of breath. PHYSICAL EXAMINATION: VITAL SIGNS: Stable. He is afebrile. GENERAL: A morbidly obese gentleman in no acute distress, alert upon exam. HEENT: Normocephalic and atraumatic. Mucosa moist. NECK: Supple. No lymphadenopathy. LUNGS: Clear in upper cooney. HEART: Irregular rate and rhythm. ABDOMEN: Benign. EXTREMITIES: Does have some peripheral edema. NEUROLOGIC: Seems intact. LABORATORY DATA: His white count is 8.3, H&H of 10 and 35, and platelet count was noted to be 366. ASSESSMENT: A 72-year-old gentleman admitted to the rehab with congestive heart failure-induced myopathy. The patient has potential to make improvement. We instituted the following multidisciplinary therapies including to, but not limited to physical, occupational, respiratory, speech, nutritional services, prosthetics and orthotics. Given his complex condition and risk for more complications, rehabilitation services cannot be provided at a low level of care such as a retirement facility. PLAN: 1. Admit to [facility] rehab for intensive inpatient therapy to include the following disciplines: A. Physical therapy to improve gait, all transfer skills and bed mobility to a modified independent level. B. Occupational therapy to improve activities of daily living to modified independent level. C. Case management to assist with discharge planning and placement options. D. Nutrition to assist with nutritional needs. E. Rehabilitation nursing to assist in monitoring the patient's underlying medical conditions and to assist with any type of bowel or bladder management. 2. The patient's current medication and medical care will be continued. 3. The patient will be placed on standard fall precautions. 4. The patient's estimated length of stay is approximately 7-10 days. HISTORY AND PHYSICAL [id number] KACEY CHAWLA 5. Watch his fluid status closely and adjust medications as necessary. TRANSINT:[id number] Voice Confirmation ID: [id number] DOCUMENT ID: [id number] LILY notes whether there has been none or any medical/functional change since admission: - LILY attests patient continues to be appropriate for IRF: - BLADE WILKS MD at 0848 CC: [id number] DICTATION DATE: 05/29/17 0853 CASH ROOM CLERK: 05/29/17 0944 ADM IN [facility] [address] [place] [address]
--- NOTE | 2017-06-04 09:00 | NUR ---
DR Lars WILKS INTO SEE PATIENT. NEW ORDERS RECEIVED FOR DISCHARGE TO HOME.
--- NOTE | 2017-06-04 10:00 | NUR ---
CARE TEAM MEETING: FAMILY ATTENDED MEETING AND AGAINST TEAM AND DOCTOR ADVISE , PATIENT FAMILY WANTS HIM HOME. [facility] WILL DELIVER A HOSPITAL BED AND MIKE LIFT. [facility] AT HOME WILL RESUME THERAPY AT HOME. DR. LOPEZ 06/08/17 @ 3:15. I DID DISCUSS HSPICE WITH PATIENT AND HE SAID HE WOULD SPEAK WITH HIS . PATIENT CHOICE FOR HOME HEALTH AND [facility] FORM SIGNED, EXPLAINED AND FILED IN CHART.
--- NOTE | 2017-06-04 10:36 | NUR ---
DISCHARGE MEDICATIONS CALLED INTO [place] [id number].
--- NOTE | 2017-06-04 14:31 | NUR ---
FAMILY INTO SEE PATIENT. FAMILY STATED THAT HOSPITAL BED AND MIKE LIFT WILL NOT BE DELIEVERED TO [facility] UNTIL 2:30 OR 3:00 THIS AFTERNOON.
--- NOTE | 2017-06-04 18:19 | NUR ---
AMBULANCE HERE TO TAKE PATIENT HOME. TRANSFER PAPER WORK GIVEN TO ASSET PROTECTION MANAGER. FAMILY TOOL ALL PATIENTS BELONGINGS HOME.
--- NOTE | 2017-07-28 10:49 | DS ---
PATIENT:KACEY CHAWLA :43 MEDICAL RECORD: [id number] DISCHARGE SUMMARY ADMISSION DATE: 05/28/17 DISCHARGE DATE: 06/04/17 This is a discharge dated 06/04/2017 from inpatient rehab. PRIMARY DIAGNOSES: Decreased functional ability and ability to provide activities of daily living secondary to CHF myopathy. SECONDARY DIAGNOSES: 1. Diastolic congestive heart failure. 2. Cardiomyopathy. 3. Axpdn-tw-piuugfa hypoxic hypercapnic respiratory failure. 4. Community-acquired pneumonia. 5. Hypokalemia. 6. Buttocks decubitus. 7. Hypertension. 8. Hyperlipidemia. 9. Diabetes. 10. Obstructive sleep apnea. 11. Atrial fibrillation. 12. Chronic kidney disease. 13. Coronary artery disease. 14. Gout. 15. Anemia. 16. Restless leg syndrome. 17. Obesity. 18. Pulmonary hypertension. HOSPITAL COURSE: Full H&P is located elsewhere on the chart on this 72-year-old male who was admitted to inpatient rehab for physical therapy and occupational therapy to improve gait, transfer skills, bed mobility, and activities of daily living to modified independent level. He was evaluated by PT and OT and their plans of care were followed. He required shelter care for observation, assessment, and medication administration as well as wound care of buttock decubitus. He was on Levaquin for antibiotic coverage for treatment of pneumonia. Electrolytes were managed by protocol. He continued appropriate home medications. He was cooperative with therapies, progressing towards goals. Case management was involved for discharge planning. He was considered stable for discharge on 06/04/2017. DISCHARGE MEDICATIONS: As per discharge medication reconciliation. DISCHARGE DISPOSITION: The patient is discharged home. He will continue his current diet and level of activity. He will have home health for continued PT and OT, and will follow with primary care and specialists as directed. He will be seen by [facility] house calls. At least 30 minutes was spent in this discharge activity. TRANSINT:[id number] Voice Confirmation ID: [id number] DOCUMENT ID: [id number] Dictated By: TAMI LEMOS I have interviewed/examined the above patient and agree with these documented DISCHARGE SUMMARY REPORT [id number] KACEY CHAWLA Carlos findings. BLADE WILKS MD at 1400 at 1049 CC: [id number] DICTATION DATE: 07/26/17 185 CLEARANCE REPRESENTATIVE: 07/27/17 1113 DIS IN 06/04/17 [facility] [address] [place] [id number]
== END 2017-06-04 18:22 | disposition home health service (06) | DRG 91 ==
LOC: D.REHAB 12:31
PROVIDERS: ADMIT Emergency Medicine
DX: G72.89 Other specified myopathies (principal); J96.22 Acute and chronic respiratory failure with hypercapnia; J96.21 Acute and chronic respiratory failure with hypoxia; J18.9 Pneumonia, unspecified organism; I50.23 Acute on chronic systolic (congestive) heart failure; I13.0 Hypertensive heart and chronic kidney disease with heart failure and stage 1 through stage 4 chronic kidney disease, or unspecified chronic kidney disease; J81.1 Chronic pulmonary edema; I42.9 Cardiomyopathy, unspecified; N17.9 Acute kidney failure, unspecified; N18.9 Chronic kidney disease, unspecified; E11.22 Type 2 diabetes mellitus with diabetic chronic kidney disease; G47.33 Obstructive sleep apnea (adult) (pediatric); I48.91 Unspecified atrial fibrillation; D72.829 Elevated white blood cell count, unspecified; I25.10 Atherosclerotic heart disease of native coronary artery without angina pectoris; M10.9 Gout, unspecified; G25.81 Restless legs syndrome; R53.81 Other malaise; D64.9 Anemia, unspecified; E87.6 Hypokalemia; G89.29 Other chronic pain; E66.9 Obesity, unspecified; Z66 Do not resuscitate